=== PATIENT | female | born 1950 | race Caucasian/White ===

== ENCOUNTER 2016-09-22 01:25 | Inpatient (IN) | payer OTHER ==
[2016-09-22] MEDS ORDERED: SODIUM CHLORIDE 1,000 ML IV STA (02:20)
[2016-09-22] MEDS ORDERED: ONDANSETRON 4 MG/2 ML VIAL IVPB ONE (02:20)
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
[2016-09-22] MEDS ORDERED: MEPERIDINE HCL CARPU-JECT 100 MG/1 ML DISP.SYRIN IVPUSH ONE ×2 (02:21→04:26)
[2016-09-22] MEDS ORDERED: MEPERIDINE HCL CARPU-JECT 50 MG/1 ML DISP.SYRIN ONE ×4 (02:38→15:30)
[2016-09-22] MEDS ORDERED: ONDANSETRON 4 MG/2 ML VIAL ONE ×4 (02:39→15:31)
[2016-09-22 02:50] LABS: BASOPHIL 0.6 % (0-2.0); EOSINOPHIL 1.1 % (0-4.5); MCH 29.7 pg (25.7-33.7); MCHC 32.2 g/dl (32.0-36.0); MEAN CELL VOLUME 92.4 fl (80-96); MEAN PLT VOLUME 7.1 fl (7.5-11.1); NEUTROPHILS 89.8 % (42.8-82.8); PLATELET COUNT 279 K/MM3 (134-434); RDW 13.4 % (11.6-15.6); WHITE BLOOD COUNT 16.5 K/mm3 (4.0-10.0)
[2016-09-22 03:26] LABS: ALBUMIN 3.8 g/dl (3.4-5.0); ALK PHOS 146 U/L (45-117); ANION GAP 11 (8-16); BILIRUBIN,TOTAL 0.3 mg/dL (0.2-1.0); CALCIUM 8.7 mg/dL (8.5-10.1); CO2 24 mmol/L (21-32); CREATININE 0.7 mg/dL (0.55-1.02); GLUCOSE,RANDOM 130 mg/dL (74-106); SGOT/AST 15 U/L (15-37); SGPT/ALT 28 U/L (12-78); TOT PROT 7.9 g/dl (6.4-8.2)
[2016-09-22] MEDS ORDERED: LEVOFLOXACIN 500 MG IVPB 100 ML IVPB ONE ×3 (03:30→06:23)
[2016-09-22] MEDS ORDERED: METRONIDAZOLE 500 MG PREMIXED 100 ML IVPB ONE ×3 (03:30→10:02)
[2016-09-22] MEDS ORDERED: ONDANSETRON 4 MG/2 ML VIAL IVPUSH STA (04:41)
[2016-09-22] MEDS ORDERED: MEPERIDINE HCL 50 MG TABLET PO PRN (06:22)
[2016-09-22] MEDS ORDERED: BACLOFEN 10 MG TABLET (FP) PO PRN (06:22)
[2016-09-22] MEDS: DEXTROSE 5%-0.45% SALINE 1,000 ML IV SCH (06:31)
[2016-09-22] MEDS ORDERED: LEVOFLOXACIN 500 MG IVPB 100 ML IVPB SCH (06:36)
[2016-09-22] MEDS: ONDANSETRON 4 MG/2 ML VIAL IVPB PRN ×2 (08:15→15:36)
[2016-09-22] MEDS ORDERED: ACETAMINOPHEN 325 MG TABLET (FP) PO PRN (08:29)
[2016-09-22] MEDS ORDERED: ACETAMINOPHEN 325 MG TABLET (FP) ONE (08:59)
[2016-09-22] MEDS ORDERED: ACETAMINOPHEN 1000 MG/100 ML VIAL (NON FORMULARY) IVPB PRN (09:29)
[2016-09-22] MEDS: MEPERIDINE HCL CARPU-JECT 50 MG/1 ML DISP.SYRIN IVPB PRN ×2 (10:06→15:36)
[2016-09-22] MEDS: METRONIDAZOLE 500 MG PREMIXED 100 ML IVPB SCH ×2 (10:08→19:05)
[2016-09-22] MEDS: ASPIRIN COATED 81 MG TABLET.EC PO SCH (10:08)
[2016-09-22] MEDS ORDERED: ACETAMINOPHEN INJECTION 100 ML IVPB ONE (10:26)
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
[2016-09-22] MEDS ORDERED: diazePAM 5 MG TABLET PO PRN (10:53)
[2016-09-22 16:01] VITALS: BMI 26.2
[2016-09-22] MEDS ORDERED: INFLUENZA VACCINE 45 MCG/0.5 ML (MDV 16-17) IM ONE (16:01)
--- NOTE | 2016-09-22 16:36 | EKG ---
Test Reason : Blood Pressure : / mmHG Vent. Rate : 116 BPM Atrial Rate : 116 BPM P-R Int : 152 ms QRS Dur : 090 ms QT Int : 332 ms P-R-T Axes : 046 029 061 degrees QTc Int : 461 ms SINUS TACHYCARDIA BIATRIAL ENLARGEMENT ABNORMAL ECG WHEN COMPARED WITH ECG OF 14-APR-2016 00:35, NO SIGNIFICANT CHANGE WAS FOUND Confirmed by LEROY BOBBY MD ([id number]) on 09/22/2016 4:35:29 PM Referred By: Confirmed By:LEROY BOBBY MD
[2016-09-22] MEDS: MEPERIDINE HCL CARPU-JECT 25 MG/1 ML DISP.SYRIN IVPUSH PRN (20:17)
[2016-09-22] MEDS ORDERED: diazePAM 5 MG TABLET PO SCH (22:00)
[2016-09-22 22:12] LABS: URINE APPEARANCE CLEAR; URINE BILIRUBIN NEGATIVE (NEGATIVE); URINE BLOOD NEGATIVE (NEGATIVE); URINE COLOR LTYELLOW; URINE GLUCOSE (UA) NEGATIVE (NEGATIVE); URINE KETONE NEGATIVE (NEGATIVE); URINE NITRITE NEGATIVE (NEGATIVE); URINE PROTEIN NEGATIVE (NEGATIVE); URINE UROBILINOGEN NEGATIVE E.U./dl (0.2-1.0)
[2016-09-22 22:14] LABS: URINE LEUK ESTERASE 2+ (NEGATIVE)
[2016-09-22 22:25] LABS: URINE MUCUS RARE; URINE RBC 4 /hpf (0-3); URINE WBC 53 /hpf (3-5)
[2016-09-23] MEDS: MEPERIDINE HCL CARPU-JECT 25 MG/1 ML DISP.SYRIN IVPUSH PRN ×5 (00:35→22:24)
[2016-09-23] MEDS: METRONIDAZOLE 500 MG PREMIXED 100 ML IVPB SCH (02:00)
[2016-09-23] MEDS: DEXTROSE 5%-0.45% SALINE 1,000 ML IV SCH (06:52)
[2016-09-23] MEDS: ONDANSETRON 4 MG/2 ML VIAL IVPB PRN (07:18)
[2016-09-23 07:43] LABS: BASOPHIL 0.3 % (0-2.0); EOSINOPHIL 0.3 % (0-4.5); MCH 31.6 pg (25.7-33.7); MEAN PLT VOLUME 6.9 fl (7.5-11.1); NEUTROPHILS 70.8 % (42.8-82.8); PLATELET COUNT 217 K/MM3 (134-434); RDW 13.1 % (11.6-15.6); WHITE BLOOD COUNT 6.7 K/mm3 (4.0-10.0)
[2016-09-23 08:28] LABS: ALBUMIN 3.1 g/dl (3.4-5.0); ANION GAP 8 (8-16); CALCIUM 8.3 mg/dL (8.5-10.1); CO2 27 mmol/L (21-32); CREATININE 0.7 mg/dL (0.55-1.02); GLUCOSE,RANDOM 124 mg/dL (74-106); SGOT/AST 13 U/L (15-37)
[2016-09-23 08:31] LABS: ALK PHOS 103 U/L (45-117); BILIRUBIN,TOTAL 0.4 mg/dL (0.2-1.0); SGPT/ALT 20 U/L (12-78); TOT PROT 6.2 g/dl (6.4-8.2)
--- NOTE | 2016-09-23 09:00 | PN ---
Progress Note (short form) - Note Progress Note: NO vomiting since yesterday but still nauseated no fever CBC, BMP 09/23/16 06:00 09/23/16 06:00 Vital Signs Period Temp Pulse Resp BP Sys/Ariza Pulse Ox Last 24 Hr 98.1 F-99.9 F 95-112 18-20 114-138/56-71 93-96 S1S2 RRR Lungs cta Abd distended, +BS no edema CT abd unremarkable IMP ?INfectious gastritis no sign of colitis, enteritis on CT advance diet as tolerated dc abx monitor Problem List - Problems (1) Abdominal pain Code(s): R10.9 - UNSPECIFIED ABDOMINAL PAIN Qualifiers: Abdominal location: generalized Qualified Code(s): R10.84 - Generalized abdominal pain (2) Back pain, chronic Code(s): M54.9 - DORSALGIA, UNSPECIFIED G89.29 - OTHER CHRONIC PAIN Qualifiers: Back pain location: low back pain (3) Hyperlipemia Code(s): E78.5 - HYPERLIPIDEMIA, UNSPECIFIED Qualifiers: Hyperlipidemia type: unspecified Qualified Code(s): E78.5 - Hyperlipidemia, unspecified
[2016-09-23] MEDS: ENOXAPARIN NA (PORCINE) 30 MG/0.3 ML DISP.SYRIN SQ SCH (09:47)
[2016-09-23] MEDS ORDERED: MEPERIDINE HCL CARPU-JECT 50 MG/1 ML DISP.SYRIN ONE ×2 (11:24→17:24)
[2016-09-23] MEDS ORDERED: PT OWN MED DRAWER 7, Y5N ONE (17:23)
[2016-09-23] MEDS: DEXTROSE 5%-NORMAL SALINE 1,000 ML IV SCH (18:38)
[2016-09-23] MEDS: METOCLOPRAMIDE HCL INJECTION 10 MG/2 ML VIAL IVPB SCH (18:40)
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
[2016-09-23] MEDS: ONDANSETRON 4 MG/2 ML VIAL IVPB SCH ×2 (20:02→22:25)
[2016-09-24] MEDS: METOCLOPRAMIDE HCL INJECTION 10 MG/2 ML VIAL IVPB SCH ×3 (01:16→18:15)
[2016-09-24] MEDS: ONDANSETRON 4 MG/2 ML VIAL IVPB SCH ×2 (02:35→07:22)
[2016-09-24] MEDS: MEPERIDINE HCL CARPU-JECT 25 MG/1 ML DISP.SYRIN IVPUSH PRN ×5 (03:29→20:58)
[2016-09-24] MEDS ORDERED: ONDANSETRON 4 MG/2 ML VIAL IVPB PRN (06:00)
[2016-09-24 09:28] LABS: BASOPHIL 0.3 % (0-2.0); EOSINOPHIL 1.2 % (0-4.5); MCH 31.8 pg (25.7-33.7); MCHC 33.9 g/dl (32.0-36.0); MEAN CELL VOLUME 93.8 fl (80-96); MEAN PLT VOLUME 6.9 fl (7.5-11.1); NEUTROPHILS 66.6 % (42.8-82.8); PLATELET COUNT 216 K/MM3 (134-434); RDW 13.3 % (11.6-15.6); WHITE BLOOD COUNT 6.8 K/mm3 (4.0-10.0)
[2016-09-24 09:59] LABS: ALBUMIN 3.1 g/dl (3.4-5.0); ALK PHOS 102 U/L (45-117); ANION GAP 9 (8-16); BILIRUBIN,TOTAL 0.2 mg/dL (0.2-1.0); CALCIUM 7.9 mg/dL (8.5-10.1); CO2 28 mmol/L (21-32); CREATININE 0.6 mg/dL (0.55-1.02); GLUCOSE,RANDOM 115 mg/dL (74-106); SGOT/AST 16 U/L (15-37); SGPT/ALT 21 U/L (12-78); TOT PROT 6.1 g/dl (6.4-8.2)
[2016-09-24] MEDS: ASPIRIN COATED 81 MG TABLET.EC PO SCH (11:46)
[2016-09-24] MEDS: ENOXAPARIN NA (PORCINE) 30 MG/0.3 ML DISP.SYRIN SQ SCH (11:46)
[2016-09-24] MEDS ORDERED: LOPERAMIDE HCL 2 MG CAPSULE PO ONE (12:14)
--- NOTE | 2016-09-24 12:20 | PN ---
GI Progress Note Subjective: diarrhea less, no nausea ,no vomiting - Objective Vital Signs: Vital Signs Temperature 98.8 F 09/24/16 06:00 Pulse Rate 83 09/24/16 06:00 Respiratory Rate 20 09/24/16 06:00 Blood Pressure 141/75 09/24/16 06:00 O2 Sat by Pulse Oximetry (%) 92 L 09/23/16 21:00 Constitutional: Well Nourished Eyes: Yes: Conjunctiva Clear HENT: Yes: Atraumatic Neck: Yes: Supple Cardiovascular: Yes: Regular Rate and Rhythm Respiratory: Yes: CTA Bilaterally ...Palpate: Yes: Soft. No: Firm/Rigid, Guarding, Hepatomegaly, Mass, Pulsatile Mass, Splenomegaly, Tenderness Labs: CBC, BMP 09/24/16 07:00 09/24/16 07:00 Problem List - Problems (1) Infectious diarrhea Assessment/Plan: r> continue antibiotics for 5 days advance diet Code(s): A09 - INFECTIOUS GASTROENTERITIS AND COLITIS, UNSPECIFIED
[2016-09-24] MEDS: LEVOFLOXACIN 500 MG IVPB 100 ML IVPB SCH (14:16)
[2016-09-24] MEDS ORDERED: POTASSIUM CHLORIDE TABS 20 MEQ TABLET.ER (FP) PO ONE (16:00)
[2016-09-24] MEDS: DEXTROSE 5%-NORMAL SALINE 1,000 ML IV SCH (18:15)
--- NOTE | 2016-09-24 18:16 | PN ---
Progress Note (short form) - Note Progress Note: able to eat today no abd pain still have nausea seen by gi CBC, BMP 09/24/16 07:00 09/24/16 07:00 Vital Signs Period Temp Pulse Resp BP Sys/Ariza Pulse Ox Last 24 Hr 98.0 F-98.9 F 76-88 14-20 117-141/71-76 92-94 S1S2 RRR Lungs cta Abd distended, +BS no edema CT abd unremarkable IMP ?INfectious gastritis no sign of colitis, enteritis on CT advance diet as tolerated dc abx monitor
[2016-09-25] MEDS: MEPERIDINE HCL CARPU-JECT 25 MG/1 ML DISP.SYRIN IVPUSH PRN ×2 (01:00→04:54)
[2016-09-25] MEDS: METOCLOPRAMIDE HCL INJECTION 10 MG/2 ML VIAL IVPB SCH ×3 (02:21→17:31)
[2016-09-25] MEDS: MEPERIDINE HCL CARPU-JECT 50 MG/1 ML DISP.SYRIN IVPB PRN ×4 (09:54→22:14)
[2016-09-25] MEDS: ENOXAPARIN NA (PORCINE) 30 MG/0.3 ML DISP.SYRIN SQ SCH (09:56)
[2016-09-25] MEDS: LEVOFLOXACIN 500 MG IVPB 100 ML IVPB SCH (11:37)
[2016-09-25] MEDS: DEXTROSE 5%-NORMAL SALINE 1,000 ML IV SCH ×2 (13:16→18:44)
[2016-09-25] MEDS: METRONIDAZOLE 500 MG PREMIXED 100 ML IVPB SCH ×2 (17:16→19:11)
[2016-09-25] MEDS: SIMETHICONE 80 MG TAB.CHEW (FP) PO SCH ×2 (17:32→22:13)
--- NOTE | 2016-09-25 21:21 | PN ---
Progress Note (short form) - Note Progress Note: able to eat today no abd pain still have nausea seen by gi CBC, BMP 09/24/16 07:00 09/24/16 07:00 Vital Signs Period Temp Pulse Resp BP Sys/Ariza Pulse Ox Last 24 Hr 98.1 F-98.6 F 77-80 18-20 117-162/50-75 93-94 S1S2 RRR Lungs cta Abd distended, +BS no edema CT abd unremarkable IMP ?INfectious gastritis no sign of colitis, enteritis on CT advance diet as toleratedrenew pain meds
[2016-09-25] MEDS ORDERED: diazePAM 5 MG TABLET PO PRN (21:55)
[2016-09-26] MEDS: METRONIDAZOLE 500 MG PREMIXED 100 ML IVPB SCH ×3 (01:43→18:37)
[2016-09-26] MEDS: METOCLOPRAMIDE HCL INJECTION 10 MG/2 ML VIAL IVPB SCH (01:43)
[2016-09-26] MEDS: MEPERIDINE HCL CARPU-JECT 50 MG/1 ML DISP.SYRIN IVPB PRN ×5 (01:45→20:59)
--- NOTE | 2016-09-26 08:47 | PN ---
Progress Note (short form) - Note Progress Note: Vital Signs Period Temp Pulse Resp BP Sys/Ariza Pulse Ox Last 24 Hr 98.1 F-98.8 F 77-80 20-20 126-162/68-75 94-96 S1S2 RRR Lungs cta Abd distended, +BS, mild epigastric tenderness, loose watery BMs C.diff negative no edema CT abd unremarkable IMP ?Infectious gastritis no sign of colitis, enteritis on CT advance diet as tolerated stop fluids add PPI Problem List - Problems (1) Abdominal pain Code(s): R10.9 - UNSPECIFIED ABDOMINAL PAIN Qualifiers: Abdominal location: generalized Qualified Code(s): R10.84 - Generalized abdominal pain (2) Back pain, chronic Code(s): M54.9 - DORSALGIA, UNSPECIFIED G89.29 - OTHER CHRONIC PAIN Qualifiers: Back pain location: low back pain (3) Hyperlipemia Code(s): E78.5 - HYPERLIPIDEMIA, UNSPECIFIED Qualifiers: Hyperlipidemia type: unspecified Qualified Code(s): E78.5 - Hyperlipidemia, unspecified
[2016-09-26] MEDS: ASPIRIN COATED 81 MG TABLET.EC PO SCH (10:50)
[2016-09-26] MEDS: ENOXAPARIN NA (PORCINE) 30 MG/0.3 ML DISP.SYRIN SQ SCH (10:50)
[2016-09-26] MEDS: PANTOPRAZOLE 40 MG TABLET (FP) PO SCH (10:52)
[2016-09-26] MEDS: LEVOFLOXACIN 500 MG IVPB 100 ML IVPB SCH (12:56)
--- NOTE | 2016-09-26 18:16 | PN ---
GI Progress Note Subjective: diarrhea resolved, still with epigastric pain - Objective Vital Signs: Vital Signs Temperature 97.9 F 09/26/16 14:06 Pulse Rate 79 09/26/16 14:06 Respiratory Rate 18 09/26/16 14:06 Blood Pressure 133/83 09/26/16 14:06 O2 Sat by Pulse Oximetry (%) 96 09/25/16 22:00 Constitutional: Well Nourished Eyes: Yes: Conjunctiva Clear HENT: Yes: Atraumatic Neck: Yes: Supple Cardiovascular: Yes: Regular Rate and Rhythm Respiratory: Yes: CTA Bilaterally ...Palpate: Yes: Soft, Tenderness (--luq tenderness). No: Firm/Rigid, Guarding , Splenomegaly Labs: CBC, BMP 09/24/16 07:00 09/24/16 07:00 Problem List - Problems (1) Infectious diarrhea Assessment/Plan: continue Levaquin and Flagyl Code(s): A09 - INFECTIOUS GASTROENTERITIS AND COLITIS, UNSPECIFIED (2) Dyspepsia Assessment/Plan: could not tolerate simethicone R> Code(s): R10.13 - EPIGASTRIC PAIN
[2016-09-27] MEDS: MEPERIDINE HCL CARPU-JECT 50 MG/1 ML DISP.SYRIN IVPB PRN ×2 (01:49→05:39)
[2016-09-27] MEDS: METRONIDAZOLE 500 MG PREMIXED 100 ML IVPB SCH ×2 (02:19→09:31)
[2016-09-27] MEDS: METOCLOPRAMIDE HCL 10 MG TABLET (FP) PO SCH ×2 (06:00→10:48)
[2016-09-27 06:59] VITALS: BP 121/63; PULSE 72
--- NOTE | 2016-09-27 08:45 | DS ---
Physical Examination Vital Signs: Vital Signs Temperature 98.0 F 09/27/16 06:57 Pulse Rate 72 09/27/16 06:57 Respiratory Rate 18 09/27/16 06:57 Blood Pressure 121/63 09/27/16 06:57 O2 Sat by Pulse Oximetry (%) 95 09/26/16 21:00 Findings/Remarks: eating ok Constitutional: Yes: No Distress Eyes: Yes: Conjunctiva Clear Respiratory: Yes: CTA Bilaterally Gastrointestinal: Yes: Normal Bowel Sounds, Soft, Abdomen, Obese Labs: CBC, BMP 09/24/16 07:00 09/24/16 07:00 Discharge Summary Reason For Visit: ABDOMINAL PAIN Current Active Problems Abdominal pain (Acute) Dyspepsia (Acute) Infectious diarrhea (Acute) Hospital Course: Admitted for abd.pain, nausea, fever and leukocytosis. Blood, burke cultures and abd CT were negative. Improved with iv fluids, iv abx. Currently tolerating regular diet, medically stable to mo home with outpt f/up. Condition: Fair - Instructions Diet, Activity, Other Instructions: Low fiber, bland diet for next week. F/up dr. Warren in office. Referrals: Alvarez Warren MD [Primary Care Provider] - Disposition: HOME - Home Medications Comprehensive Discharge Medication List: Ambulatory Orders Aspirin [Ecotrin] 81 mg PO Q2D 08/06/15 Baclofen 10 mg PO DAILY PRN 08/06/15 Diazepam [Valium -] 10 mg PO HS 08/06/15 Meperidine HCl [Demerol -] 100 mg PO QID 05/22/16 Levofloxacin [Levaquin -] 500 mg PO DAILY #2 tablet 09/27/16 Metronidazole [Flagyl -] 500 mg PO TID #8 tablet 09/27/16 Ondansetron HCl [Zofran] 4 mg PO TID PRN #15 tablet 09/27/16 Pantoprazole Sodium [Protonix -] 40 mg PO DAILY 30 Days 09/27/16
[2016-09-27] MEDS: PANTOPRAZOLE 40 MG TABLET (FP) PO SCH (09:31)
[2016-09-27] MEDS: LEVOFLOXACIN 500 MG IVPB 100 ML IVPB SCH (09:31)
[2016-09-27] MEDS: ENOXAPARIN NA (PORCINE) 30 MG/0.3 ML DISP.SYRIN SQ SCH (09:31)
[2016-09-27] MEDS ORDERED: MEPERIDINE HCL 50 MG TABLET PO ONE (11:00)
[2016-09-27 11:35] VITALS: TEMP 8
== END 2016-09-27 11:51 | disposition home or self-care (01) | DRG 392 ==
LOC: JER 01:25 → JERBED 05:21 → J5S 17:30
PROVIDERS: ADMIT Internal Medicine; ATTEND Internal Medicine
DX: A09 Infectious gastroenteritis and colitis, unspecified (principal); I69.354 Hemiplegia and hemiparesis following cerebral infarction affecting left non-dominant side; R10.13 Epigastric pain; D72.829 Elevated white blood cell count, unspecified; E78.5 Hyperlipidemia, unspecified; M54.9 Dorsalgia, unspecified; G89.29 Other chronic pain
CPT/HCPCS: 36415; 71010-TC; 74020-TC; 74177-TC; 80053; 81003; 81015; 82272; 83690; 85025; 87040; 87045; 87046; 87205; 87324; 87449; 93005; 93010; 99283-25; G0008; Q2037

== ENCOUNTER 2016-12-21 20:52 | Emergency (ER) | payer OTHER ==
[2016-12-21 21:15] VITALS: BP 148/75; PULSE 128; TEMP 98; BMI 26.0
[2016-12-21] MEDS ORDERED: MEPERIDINE HCL CARPU-JECT 50 MG/1 ML DISP.SYRIN IVPUSH ONE (21:48)
[2016-12-21] MEDS ORDERED: METOCLOPRAMIDE HCL INJECTION 10 MG/2 ML VIAL IVPB ONE (21:48)
[2016-12-21] MEDS ORDERED: SODIUM CHLORIDE 500 ML IV STA (21:48)
--- NOTE | 2016-12-21 22:24 | PDOC ---
*Physical Exam - Vital Signs Last Vital Signs Temp Pulse Resp BP Pulse Ox 98.0 F 128 H 20 148/75 96 12/21/16 21:10 12/21/16 21:10 12/21/16 21:10 12/21/16 21:10 12/21/16 21:10 ED Treatment Course - LABORATORY CBC & Chemistry Diagram: 12/21/16 22:30 12/21/16 22:30 Medical Decision Making - Medical Decision Making 12/21/16 22:24 Pt seen by the Advanced Practice Provider under my direct supervision Ancillary studies reviewed I agree with plan as outlined by the Advanced Practice Provider ALONZO Whalen *DC/Admit/Observation/Transfer Diagnosis at time of Disposition: Opioid dependence, Nausea & vomiting - Discharge Dispostion Disposition: HOME Condition at time of disposition: Improved - Prescriptions Prescriptions: Ondansetron [Zofran Odt -] 4 mg SL Q6H PRN #20 od.tablet PRN Reason: Nausea - Referrals Referrals: Alvarez Coronel MD [Primary Care Provider] - - Patient Instructions Additional Instructions: FOLLOW UP WITH DR. CORONEL THIS WEEK FOR FURTHER EVALUATION. CALL TO SCHEDULE APPOINTMENT. MOTRIN OR TYLENOL FOR PAIN NEEDED. ZOFRAN FOR NAUSEA. Print Language: AUSTRIAN
[2016-12-21] MEDS ORDERED: MEPERIDINE HCL CARPU-JECT 50 MG/1 ML DISP.SYRIN ONE (22:37)
[2016-12-21] MEDS ORDERED: METOCLOPRAMIDE HCL INJECTION 10 MG/2 ML VIAL ONE (22:37)
[2016-12-21 22:49] LABS: EOSINOPHIL 1.9 % (0-4.5); MCH 30.9 pg (25.7-33.7); MEAN PLT VOLUME 7.4 fl (7.5-11.1); NEUTROPHILS 62.1 % (42.8-82.8); PLATELET COUNT 296 K/MM3 (134-434); RDW 13.1 % (11.6-15.6); WHITE BLOOD COUNT 13.3 K/mm3 (4.0-10.0)
[2016-12-21 23:28] LABS: ALBUMIN 3.4 g/dl (3.4-5.0); AMYLASE 53 U/L (25-115); ANION GAP 11 (8-16); BILIRUBIN,TOTAL 0.1 mg/dL (0.2-1.0); CALCIUM 8.4 mg/dL (8.5-10.1); CO2 27 mmol/L (21-32); CREATININE 0.8 mg/dL (0.55-1.02); GLUCOSE,RANDOM 124 mg/dL (74-106); SGPT/ALT 26 U/L (12-78); TOT PROT 7.2 g/dl (6.4-8.2)
[2016-12-21 23:31] LABS: ALK PHOS 139 U/L (45-117); TROPONIN I < 0.02 ng/ml (0.00-0.05)
[2016-12-21 23:32] LABS: SGOT/AST 16 U/L (15-37)
[2016-12-22 00:24] LABS: URINE APPEARANCE CLEAR; URINE BILIRUBIN NEGATIVE (NEGATIVE); URINE BLOOD NEGATIVE (NEGATIVE); URINE COLOR LTYELLOW; URINE GLUCOSE (UA) NEGATIVE (NEGATIVE); URINE KETONE NEGATIVE (NEGATIVE); URINE NITRITE NEGATIVE (NEGATIVE); URINE PROTEIN NEGATIVE (NEGATIVE); URINE UROBILINOGEN NEGATIVE E.U./dl (0.2-1.0)
[2016-12-22 00:25] LABS: URINE LEUK ESTERASE TRACE (NEGATIVE)
[2016-12-22] MEDS ORDERED: MEPERIDINE HCL CARPU-JECT 100 MG/1 ML DISP.SYRIN SQ ONE (00:28)
[2016-12-22 00:40] LABS: URINE BACTERIA RARE /hpf (NONE SEEN); URINE MUCUS RARE; URINE RBC 1 /hpf (0-3); URINE WBC 15 /hpf (3-5)
[2016-12-22] MEDS ORDERED: MEPERIDINE HCL CARPU-JECT 50 MG/1 ML DISP.SYRIN ONE (00:46)
--- NOTE | 2016-12-22 02:24 | PDOC ---
History of Present Illness - General Chief Complaint: Nausea/Vomiting Stated Complaint: Nausea/Vomiting Time Seen by Provider: 12/21/16 21:30 History Source: Patient Exam Limitations: No Limitations - History of Present Illness Travel History: No Initial Comments: 12/22/16 02:19 66yo Female patient w/ PmHx: multiple abd sx, renal colic, HLD, Abd hernia presents to ED c/o nausea & vomiting beginning Monday night. Patient now reports pain to Left flank pain radiating to lower abdomen. She reports last meal 11am. Denies any other complaints at this time. Timing/Duration: reports: getting worse, changing over time Quality: reports: moderate Abdominal Pain Onset Location: reports: flank (Left) Pain Radiation: reports: groin Activities at Onset: reports: none Aggravating Factors: improves with: None Alleviating Factors: improves with: None Past History - Travel Traveled outside of the country in the last 30 days: No Close contact w/someone who was outside of country & ill: No - Past Medical History Allergies/Adverse Reactions: Allergies Allergy/AdvReac Type Severity Reaction Status Date / Time hydromorphone HCl AdvReac Severe Low Blood Verified 12/21/16 21:10 [From Dilaudid] Pressure NSAIDS (Non-Steroidal AdvReac Intermediate Verified 12/21/16 21:10 Anti-Inflamma acetaminophen [From Percocet] AdvReac Mild Vomiting Verified 12/21/16 21:10 codeine [Codeine] AdvReac Mild Vomiting Verified 12/21/16 21:10 hydrocodone bitartrate AdvReac Mild Low Blood Verified 12/21/16 21:10 [From Vicodin] Pressure morphine AdvReac Mild Low Blood Verified 12/21/16 21:10 Pressure oxycodone [Oxycodone] AdvReac Mild Vomiting Verified 12/21/16 21:10 oxycodone HCl [From Percocet] AdvReac Mild Vomiting Verified 12/21/16 21:10 Home Medications: Ambulatory Orders Aspirin [Ecotrin] 81 mg PO Q2D 08/06/15 Baclofen 10 mg PO DAILY PRN 08/06/15 Diazepam [Valium -] 10 mg PO HS 08/06/15 Meperidine HCl [Demerol -] 100 mg PO QID 05/22/16 Levofloxacin [Levaquin -] 500 mg PO DAILY #2 tablet 09/27/16 Metronidazole [Flagyl -] 500 mg PO TID #8 tablet 09/27/16 Ondansetron HCl [Zofran] 4 mg PO TID PRN #15 tablet 09/27/16 Pantoprazole Sodium [Protonix -] 40 mg PO DAILY 30 Days 09/27/16 Ondansetron [Zofran Odt -] 4 mg SL Q6H PRN #20 od.tablet 12/22/16 Anemia: No Asthma: No Cancer: No Cardiac Disorders: No CVA: Yes (2) COPD: No CHF: No DVT: No Dementia: No Diabetes: No Dialysis: No GI Disorders: Yes (UMBILICAL HERNIA; 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) Disorders: No HTN: No Hypercholesterolemia: Yes HIV: No Kidney Stones: Yes (04/12/16) Liver Disease: No Psychiatric Problems: No Suicide Attempt (Hx): No Seizures: No - Surgical History Abdominal Surgery: Yes (6 HERNIA REPAIRS/HEMICOLECTOMY) GI Surgery: Yes (reconstruction of colon) Neurologic Surgery: Yes (laminectomy, spinal fusion, RECONSTRUCTION) Orthopedic Surgery: Yes - Immunization History Immunization Up to Date: Yes - Psycho/Social/Smoking Cessation Hx Anxiety: No Suicidal Ideation: No Smoking Status: Yes Smoking History: Former smoker Have you smoked in the past 12 months: No Number of Cigarettes Smoked Daily: 0 If you are a former smoker, when did you quit?: 25 YEARS AGO Information on smoking cessation initiated: No Hx Alcohol Use: No Drug/Substance Use Hx: No Substance Use Type: None Hx Substance Use Treatment: No Abd/GI Specific PMHX - Complaint Specific PMHX Diverticulitis: No Gall Bladder Disease: No GERD: No Hepatitis: No Irritable Bowel Synd (IBS): No Pancreatitis: No GI Ulcer Disease: No Review of Systems - Review of Systems Able to Perform ROS?: Yes Is the patient limited Stateless proficient: No Constitutional: No: Chills, Fever, Malaise, Weakness Respiratory: No: Cough, Shortness of Breath, Stridor, Wheezing, Productive cough Cardiac (ROS): No: Chest Pain, Lightheadedness, Palpitations, Syncope, Chest Tightness ABD/GI: Yes: Nausea, Vomiting, Other (Lower abd pain). No: Constipated, Diarrhea : Yes: Flank Pain (Left). No: Burning, Dysuria, Discharge Musculoskeletal: Yes: Back Pain All Other Systems: Reviewed and Negative *Physical Exam - Vital Signs Last Vital Signs Temp Pulse Resp BP Pulse Ox 98.0 F 128 H 20 148/75 96 12/21/16 21:10 12/21/16 21:10 12/21/16 21:10 12/21/16 21:10 12/21/16 21:10 - Physical Exam General Appearance: Yes: Nourished, Appropriately Dressed, Apparent Distress, Moderate Distress. No: Mild Distress, Severe Distress HEENT: positive: EOMI, IRMA, Normal ENT Inspection, Normal Voice, Symmetrical, TMs Normal, Pharynx Normal. negative: Pharyngeal Erythema, Tonsillar Exudate, Tonsillar Erythema, TM Bulging, TM Dull, TM Erythema Neck: positive: Trachea midline, Supple. negative: Stridor, Lymphadenopathy (R) , Lymphadenopathy (L) Respiratory/Chest: positive: Lungs Clear, Normal Breath Sounds. negative: Respiratory Distress, Accessory Muscle Use, Labored Respiration, Rapid RR, Rhonchi, Stridor, Wheezing Cardiovascular: positive: Regular Rhythm, Regular Rate. negative: Edema, JVD, Murmur Gastrointestinal/Abdominal: positive: Normal Bowel Sounds, Tender, Soft, Tenderness (Lower abd to LLQ). negative: Distended, Guarding, Rebound Musculoskeletal: positive: Normal Inspection, CVA Tenderness (Left), CVA Tenderness (L). 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 intact, Fully Oriented, Alert, Normal Mood/ Affect, Normal Response, Motor Strength 5/5 ED Treatment Course - LABORATORY CBC & Chemistry Diagram: 12/21/16 22:30 12/21/16 22:30 - ADDITIONAL ORDERS Additional order review: Laboratory Results 12/21/16 12/21/16 22:40 22:30 Sodium 141 Potassium 3.9 Chloride 103 Carbon Dioxide 27 Anion Gap 11 BUN 14 D Creatinine 0.8 D Creat Clearance w eGFR > 60 Random Glucose 124 H Calcium 8.4 L Total Bilirubin 0.1 L D AST 16 ALT 26 D Alkaline Phosphatase 139 H D Creatine Kinase 69 Troponin I < 0.02 Total Protein 7.2 Albumin 3.4 Total Amylase 53 D Lipase 91 Urine Color Ltyellow Urine Appearance Clear Urine pH 5.0 Ur Specific Marshall 1.027 Urine Protein Negative Urine Glucose (UA) Negative Urine Ketones Negative Urine Blood Negative Urine Nitrite Negative Urine Bilirubin Negative Urine Urobilinogen Negative Ur Leukocyte Esterase Trace H D Urine RBC 1 Urine WBC 15 Ur Epithelial Cells Rare Urine Bacteria Rare Urine Mucus Rare 12/21/16 22:30 RBC 4.23 MCV 91.0 MCHC 34.0 RDW 13.1 MPV 7.4 L Neutrophils % 62.1 Lymphocytes % 29.8 D Monocytes % 5.2 Eosinophils % 1.9 Basophils % 1.0 D - Medications Given in the ED: ED Medications Discontinued Medications Generic Name Dose Route Start Last Admin Trade Name Freq PRN Reason Stop Dose Admin Sodium Chloride 500 mls @ 500 mls/hr 12/21/16 21:48 12/21/16 22:45 Normal Saline - IV 12/21/16 22:47 500 mls/hr ASDIR STA Administration Meperidine HCl 50 mg 12/21/16 21:48 12/21/16 22:30 Demerol Injection - IVPUSH 12/21/16 21:49 50 mg ONCE ONE Administration Meperidine HCl 100 mg 12/22/16 00:28 12/22/16 00:45 Demerol Injection - SQ 12/22/16 00:29 100 mg ONCE ONE Administration Metoclopramide HCl 10 mg 12/21/16 21:48 12/21/16 22:30 Reglan Injection - IVPB 12/21/16 21:49 10 mg ONCE ONE Administration *DC/Admit/Observation/Transfer Diagnosis at time of Disposition: Opioid dependence Qualifiers: Substance use status: uncomplicated Qualified Code(s): F11.20 - Opioid dependence, uncomplicated Nausea and vomiting Qualifiers: Vomiting type: unspecified Vomiting Intractability: non-intractable Qualified Code(s): R11.2 - Nausea with vomiting, unspecified - Discharge Dispostion Disposition: HOME Condition at time of disposition: Improved Admit: No - Prescriptions Prescriptions: Ondansetron [Zofran Odt -] 4 mg SL Q6H PRN #20 od.tablet PRN Reason: Nausea - Patient Instructions Additional Instructions: FOLLOW UP WITH DR. CORONEL THIS WEEK FOR FURTHER EVALUATION. CALL TO SCHEDULE APPOINTMENT. MOTRIN OR TYLENOL FOR PAIN NEEDED. ZOFRAN FOR NAUSEA. Print Language: TURKISH
== END 2016-12-22 03:20 | disposition home or self-care (01) ==
LOC: JER 20:52
PROC: 3E033NZ Introduction of Analgesics, Hypnotics, Sedatives into Peripheral Vein, Percutaneous Approach (ICD-10-PCS; principal; 2016-12-21)
PROC: 3E023NZ Introduction of Analgesics, Hypnotics, Sedatives into Muscle, Percutaneous Approach (ICD-10-PCS; 2016-12-21)
PROC: 3E033GC Introduction of Other Therapeutic Substance into Peripheral Vein, Percutaneous Approach (ICD-10-PCS; 2016-12-21)
PROC: 3E0337Z Introduction of Electrolytic and Water Balance Substance into Peripheral Vein, Percutaneous Approach (ICD-10-PCS; 2016-12-21)
DX: F11.20 Opioid dependence, uncomplicated (principal); R11.2 Nausea with vomiting, unspecified; E78.5 Hyperlipidemia, unspecified; Z87.891 Personal history of nicotine dependence; Z86.73 Personal history of transient ischemic attack (TIA), and cerebral infarction without residual deficits; Z98.890 Other specified postprocedural states
CPT/HCPCS: 36415; 74176; 80053; 81003; 81015; 82150; 82550; 83690; 84484; 85025; 87086; 99281-25

== ENCOUNTER 2017-02-22 18:22 | Emergency (ER) | payer OTHER ==
[2017-02-22 18:26] VITALS: BMI 26.3
[2017-02-22] MEDS ORDERED: ONDANSETRON 4 MG/2 ML VIAL IVPUSH STA (19:40)
[2017-02-22] MEDS ORDERED: SODIUM CHLORIDE 1,000 ML IV STA (19:40)
[2017-02-22] MEDS ORDERED: LEVOFLOXACIN 500 MG IVPB 100 ML IVPB ONE ×2 (19:41→19:56)
[2017-02-22] MEDS ORDERED: METRONIDAZOLE 500 MG PREMIXED 100 ML IVPB ONE ×2 (19:41→19:56)
[2017-02-22] MEDS ORDERED: MEPERIDINE HCL CARPU-JECT 75 MG/1 ML DISP.SYRIN IVPUSH ONE ×2 (19:41→21:58)
--- NOTE | 2017-02-22 19:42 | PDOC ---
History of Present Illness <Marika Cruz - Last Filed: 02/23/17 01:23> - General History Source: Patient Exam Limitations: No Limitations - History of Present Illness Initial Comments: 02/22/17 19:42 67-year-old female, presents with abdominal pain associated with N/V since Monday. patient states she has history diverticulitis and kidney stones. Patient state to able to eat since Monday. Patient states she has the chills. Complains of diarrhea as well. Patient denies any sick Or recent travel. Pain is crampy in nature 10 out of 10. patient denies FUD. <Tim Ponce - Last Filed: 02/23/17 01:29> - General Chief Complaint: Nausea/Vomiting Stated Complaint: NAUSEA/VOMITING Time Seen by Provider: 02/22/17 19:34 Past History <Marika Cruz - Last Filed: 02/23/17 01:23> - Past Medical History Anemia: No Asthma: No Cancer: No Cardiac Disorders: No CVA: Yes (2) COPD: No CHF: No DVT: No Dementia: No Diabetes: No Dialysis: No GI Disorders: Yes (UMBILICAL HERNIA; 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) Disorders: No HTN: No Hypercholesterolemia: Yes HIV: No Kidney Stones: Yes (04/12/16) Liver Disease: No Psychiatric Problems: No Suicide Attempt (Hx): No Seizures: No - Surgical History Abdominal Surgery: Yes (6 HERNIA REPAIRS/HEMICOLECTOMY) GI Surgery: Yes (reconstruction of colon) Neurologic Surgery: Yes (laminectomy, spinal fusion, RECONSTRUCTION) Orthopedic Surgery: Yes - Immunization History Immunization Up to Date: Yes - Psycho/Social/Smoking Cessation Hx Anxiety: No Suicidal Ideation: No Smoking Status: Yes Smoking History: Never smoked Have you smoked in the past 12 months: No Number of Cigarettes Smoked Daily: 0 If you are a former smoker, when did you quit?: 25 YEARS AGO Hx Alcohol Use: No Drug/Substance Use Hx: No Substance Use Type: None Hx Substance Use Treatment: No <Tim Ponce - Last Filed: 02/23/17 01:29> - Past Medical History Allergies/Adverse Reactions: Allergies Allergy/AdvReac Type Severity Reaction Status Date / Time hydromorphone HCl AdvReac Severe Low Blood Verified 02/22/17 18:26 [From Dilaudid] Pressure NSAIDS (Non-Steroidal AdvReac Intermediate Verified 02/22/17 18:26 Anti-Inflamma codeine [Codeine] AdvReac Mild Vomiting Verified 02/22/17 18:26 hydrocodone bitartrate AdvReac Mild Low Blood Verified 02/22/17 18:26 [From Vicodin] Pressure morphine AdvReac Mild Low Blood Verified 02/22/17 18:26 Pressure oxycodone [Oxycodone] AdvReac Mild Vomiting Verified 02/22/17 18:26 oxycodone HCl [From Percocet] AdvReac Mild Vomiting Verified 02/22/17 18:26 Home Medications: Ambulatory Orders Aspirin [Ecotrin] 81 mg PO ASDIR 08/06/15 Baclofen 10 mg PO DAILY PRN 08/06/15 Diazepam [Valium -] 10 mg PO HS 08/06/15 Meperidine HCl [Demerol -] 100 mg PO QID 05/22/16 Pantoprazole Sodium [Protonix -] 40 mg PO DAILY 30 Days 09/27/16 Ondansetron [Zofran *Odt*] 4 mg SL TID #30 od.tablet 02/23/17 Review of Systems - Review of Systems Constitutional: Yes: Symptoms Reported, See HPI, Chills, Loss of Appetite, Malaise. No: Fever, Night Sweats, Weight Stable, Unintentional Wgt. Loss, Other HEENTM: Yes: Symptoms Reported, See HPI. No: Eye Pain, Blurred Vision, Tearing , Recent change in vision, Cataracts, Ear Pain, Ocular Prothesis, Ear Discharge , Nose Pain, Nose Congestion, Nose Bleeding, Hearing Loss Respiratory: Yes: Symptoms reported, See HPI. No: Cough, Orthopnea, Shortness of Breath, SOB with Exertion, Productive cough Cardiac (ROS): Yes: Symptoms Reported, See HPI. No: Chest Pain, Edema, Irregular Heart Rate, Lightheadedness, Palpitations, Other ABD/GI: Yes: Symptoms Reported, See HPI, Diarrhea, Nausea, Vomiting, Indigestion , Abdominal cramping. No: Abdominal Distended, Abd. Pain w/ defecation, Blood Streaked Bowels : Yes: Symptoms Reported, See HPI. No: Burning, Dysuria, Discharge, Frequency , Flank Pain, Hematuria, Urgency, Testicular Pain Musculoskeletal: Yes: Symptoms Reported, See HPI. No: Back Pain, Gout, Joint Pain, Joint Swelling, Muscle Pain, Neck Pain Integumentary: Yes: Symptoms Reported, See HPI. No: Bruising, Change in Color, Erythema, Flushing, Lesions, Lumps Neurological: Yes: Symptoms reported, See HPI. No: Headache, Numbness, Paresthesia, Pre-Existing Deficit, Seizure, Tingling, Tremors, Weakness Psychiatric: No: Anxiety, Depression, Frequent Crying, Stressors, Sleep Pattern Change, Other Endocrine: Yes: Symptoms Reported, See HPI. No: Excessive Sweating, Flushing, Intolerance to Cold, Intolerance to Heat, Increased Hunger Hematologic/Lymphatic: Yes: Symptoms Reported, See HPI. No: Anemia, Blood Clots , Easy Bleeding, Easy Bruising, Lymph Node Abnormalities <Tim Ponce - Last Filed: 02/23/17 01:29> *Physical Exam - Vital Signs Last Vital Signs Temp Pulse Resp BP Pulse Ox 98.3 F 95 H 17 132/78 98 02/22/17 23:44 02/22/17 23:44 02/22/17 23:44 02/22/17 23:44 02/22/17 23:44 <Marika Cruz - Last Filed: 02/23/17 01:23> - Vital Signs Last Vital Signs Temp Pulse Resp BP Pulse Ox 99.0 F 107 H 20 156/91 97 02/22/17 18:22 02/22/17 18:22 02/22/17 18:22 02/22/17 18:22 02/22/17 18:22 - Physical Exam Comments: 02/22/17 19:49 *Physical Exam General Appearance: Yes: Appropriately Dressed. moderate distress No: Intoxicated HEENT: positive: EOMI, IRMA, Normal ENT Inspection, Normal Voice, TMs Normal, Pharynx Normal. negative: Pale Conjunctivae, Photophobia, Scleral Icterus (R), Scleral Icterus (L) Neck: positive: Trachea midline, Normal Thyroid, Supple. negative: Tender, Rigid, Carotid bruit, Stridor, Lymphadenopathy (R), Lymphadenopathy (L), Thyromegaly Respiratory/Chest: positive: Lungs Clear, Normal Breath Sounds. negative: Chest Tender, Respiratory Distress, Accessory Muscle Use, Labored Respiration, RES, Crackles, Rales, Rhonchi, Stridor, Wheezing, Dullness Cardiovascular: positive: Regular Rhythm, Regular Rate, S1, S2. negative: Edema , JVD, Murmur, Bradycardia, Tachycardia Vascular Pulses: Dorsalis-Pedis (R): 2+, Doralis-Pedis (L): 2+ Gastrointestinal/Abdominal: positive: Normal Bowel Sounds, distended, mild diffuse tenderness, Soft. negative: Organomegaly, Pulsatile Mass, Increased Bowel Sounds, Decreased BS, Distended, Guarding, Rebound, Hernia, Hepatomegaly, Spleenomegaly Lymphatic: negative: Adenopathy, Tenderness Musculoskeletal: positive: Normal Inspection. negative: CVA Tenderness, Decreased Range of Motion Extremity: positive: Normal Capillary Refill, Normal Inspection, Normal Range of Motion, Pelvis Stable. negative: Tender, Pedal Edema, Swelling, Erythema Integumentary: positive: Normal Color, Dry, Warm. 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 negative: EOM Palsy, Facial Droop, Sensory Deficit <Tim Ponce - Last Filed: 02/23/17 01:29> ED Treatment Course - LABORATORY CBC & Chemistry Diagram: 02/22/17 20:05 02/22/17 20:05 - ADDITIONAL ORDERS Additional order review: Laboratory Results 02/22/17 02/22/17 02/22/17 22:55 20:05 20:05 INR 0.98 Sodium 141 Potassium 4.3 Chloride 102 Carbon Dioxide 28 Anion Gap 11 BUN 11 D Creatinine 0.8 Creat Clearance w eGFR > 60 Random Glucose 105 Calcium 9.1 Magnesium 2.2 Total Bilirubin 0.3 D AST 17 ALT 25 Alkaline Phosphatase 160 H Total Protein 7.7 Albumin 3.9 Total Amylase 52 Lipase 68 L Urine Color Ltyellow Urine Appearance Clear Urine pH 6.0 Urine Protein Negative Urine Glucose (UA) Negative Urine Ketones Negative Urine Blood 1+ H Urine Nitrite Negative Urine Bilirubin Negative Urine Urobilinogen Negative Ur Leukocyte Esterase Negative Urine RBC 1 Urine WBC <1 Ur Epithelial Cells Rare Urine Mucus Rare 02/22/17 20:05 RBC 4.53 MCV 91.6 MCHC 32.5 RDW 12.7 MPV 7.5 Neutrophils % 78.3 D Lymphocytes % 14.8 D Monocytes % 4.7 Eosinophils % 1.4 Basophils % 0.8 - RADIOLOGY Radiograph Interpretation: 02/23/17 01:24 EXAM: CT abdomen and pelvis with oral contrast 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 Small nonobstructing stone in the lower pole of the right kidney. The unenhanced upper abdominal visceral organs are otherwise grossly normal There is no bowel distention. A normal appendix is visualized There have been prior resections of the left colon. No significant diverticulosis or evidence of acute diverticulitis There is mesh along the anterior abdominal wall both supraumbilical and infraumbilical compatible with prior hernia repairs. A portion of small bowel projects into a small umbilical hernia without evidence of obstruction There is no free air or free fluid The patient is status post posterior fusion of L2-L5 with bilateral fixation rods and pedicle screws, L4 laminectomy and discectomy is at L3/L4 and L4/L5 with disc implants and bone grafts - Medications Given in the ED: ED Medications Discontinued Medications Generic Name Dose Route Start Last Admin Trade Name Freq PRN Reason Stop Dose Admin Sodium Chloride 1,000 mls @ 1,000 mls/hr 02/22/17 19:40 02/22/17 20:19 Normal Saline - IV 02/22/17 20:39 1,000 mls/hr ASDIR STA Administration Metronidazole 100 mls @ 100 mls/hr 02/22/17 19:41 02/22/17 20:20 Flagyl 500mg Premixed Ivpb - IVPB 02/22/17 20:40 100 mls/hr ONCE ONE Administration Levofloxacin 100 mls @ 100 mls/hr 02/22/17 19:41 02/22/17 21:03 Levaquin 500 Mg Premixed Ivpb - IVPB 02/22/17 20:40 100 mls/hr ONCE ONE Administration Meperidine HCl 75 mg 02/22/17 19:41 02/22/17 20:20 Demerol Injection - IVPUSH 02/22/17 19:42 75 mg ONCE ONE Administration Meperidine HCl 75 mg 02/22/17 21:58 02/22/17 22:12 Demerol Injection - IVPUSH 02/22/17 21:59 75 mg ONCE ONE Administration Meperidine HCl 100 mg 02/23/17 00:47 02/23/17 00:56 Demerol Injection - IVPUSH 02/23/17 00:48 100 mg ONCE ONE Administration Ondansetron HCl 4 mg 02/22/17 19:40 02/22/17 20:19 Zofran Injection IVPUSH 02/22/17 19:41 4 mg ONCE STA Administration <Marika Cruz - Last Filed: 02/23/17 01:23> - LABORATORY CBC & Chemistry Diagram: 02/22/17 20:05 02/22/17 20:05 <Tim Ponce - Last Filed: 02/23/17 01:29> Medical Decision Making - Medical Decision Making 02/23/17 01:27 Dr. Ponce: The scribe's documentation has been prepared under my direction and personally reviewed by me in its entirery. I confirm that the note above accurately reflects all work, treatment, procedures, and medical decision making performed by me. Ct scan of abd/pelvis is negative for any pathology. Pt to be discharged. Pt to follow up with her pcp. Referred to GI. <Tim Ponce - Last Filed: 02/23/17 01:29> *DC/Admit/Observation/Transfer <Marika Cruz - Last Filed: 02/23/17 01:23> - Discharge Dispostion Admit: No <Tim Ponce - Last Filed: 02/23/17 01:29> Diagnosis at time of Disposition: Nausea & vomiting - Discharge Dispostion Disposition: HOME Condition at time of disposition: Stable - Referrals Referrals: Brennon Griffin MD [Staff Physician] - - Patient Instructions Printed Discharge Instructions: DI for Nausea -- Adult, DI for Vomiting -- Adult
[2017-02-22] MEDS ORDERED: ONDANSETRON 4 MG/2 ML VIAL ONE (19:55)
[2017-02-22] MEDS ORDERED: MEPERIDINE HCL CARPU-JECT 50 MG/1 ML DISP.SYRIN ONE ×2 (20:15→22:08)
[2017-02-22 20:37] LABS: BASOPHIL 0.8 % (0-2.0); EOSINOPHIL 1.4 % (0-4.5); MCH 29.8 pg (25.7-33.7); MCHC 32.5 g/dl (32.0-36.0); MEAN CELL VOLUME 91.6 fl (80-96); MEAN PLT VOLUME 7.5 fl (7.5-11.1); NEUTROPHILS 78.3 % (42.8-82.8); PLATELET COUNT 294 K/MM3 (134-434); RDW 12.7 % (11.6-15.6); WHITE BLOOD COUNT 12.2 K/mm3 (4.0-10.0)
[2017-02-22 20:50] LABS: INR 0.98 (0.82-1.09); PROTHROMBIN TIME (PATIENT) 10.8 SEC (9.98-11.88)
[2017-02-22 21:00] LABS: ALBUMIN 3.9 g/dl (3.4-5.0); AMYLASE 52 U/L (25-115); ANION GAP 11 (8-16); BILIRUBIN,TOTAL 0.3 mg/dL (0.2-1.0); CALCIUM 9.1 mg/dL (8.5-10.1); CO2 28 mmol/L (21-32); CREATININE 0.8 mg/dL (0.55-1.02); GLUCOSE,RANDOM 105 mg/dL (74-106); MAGNESIUM 2.2 mg/dL (1.8-2.4); SGOT/AST 17 U/L (15-37); SGPT/ALT 25 U/L (12-78); TOT PROT 7.7 g/dl (6.4-8.2)
[2017-02-22 21:01] LABS: ALK PHOS 160 U/L (45-117)
[2017-02-22 23:01] LABS: URINE APPEARANCE CLEAR; URINE BILIRUBIN NEGATIVE (NEGATIVE); URINE COLOR LTYELLOW; URINE GLUCOSE (UA) NEGATIVE (NEGATIVE); URINE KETONE NEGATIVE (NEGATIVE); URINE LEUK ESTERASE NEGATIVE (NEGATIVE); URINE NITRITE NEGATIVE (NEGATIVE); URINE PROTEIN NEGATIVE (NEGATIVE); URINE UROBILINOGEN NEGATIVE E.U./dl (0.2-1.0)
[2017-02-22 23:14] LABS: URINE BLOOD 1+ (NEGATIVE)
[2017-02-22 23:40] LABS: URINE MUCUS RARE; URINE RBC 1 /hpf (0-3); URINE WBC <1 /hpf (3-5)
[2017-02-23] MEDS ORDERED: MEPERIDINE HCL CARPU-JECT 100 MG/1 ML DISP.SYRIN IVPUSH ONE (00:47)
[2017-02-23] MEDS ORDERED: MEPERIDINE HCL CARPU-JECT 50 MG/1 ML DISP.SYRIN ONE (00:51)
[2017-02-23 01:43] VITALS: BP 129/73; PULSE 89; TEMP 98.1
== END 2017-02-23 01:44 | disposition home or self-care (01) ==
LOC: JER 18:22
PROC: 3E033GC Introduction of Other Therapeutic Substance into Peripheral Vein, Percutaneous Approach (ICD-10-PCS; principal; 2017-02-22)
PROC: 3E03329 Introduction of Other Anti-infective into Peripheral Vein, Percutaneous Approach (ICD-10-PCS; 2017-02-22)
PROC: 3E033NZ Introduction of Analgesics, Hypnotics, Sedatives into Peripheral Vein, Percutaneous Approach (ICD-10-PCS; 2017-02-22)
PROC: 3E033GC Introduction of Other Therapeutic Substance into Peripheral Vein, Percutaneous Approach (ICD-10-PCS; 2017-02-22)
DX: R11.2 Nausea with vomiting, unspecified (principal); Z87.442 Personal history of urinary calculi; Z87.19 Personal history of other diseases of the digestive system
CPT/HCPCS: 36415; 74176-TC; 80053; 81003; 81015; 82150; 83690; 83735; 85025; 85610; 87040; 87086; 99283-25; Q9967

== ENCOUNTER 2017-03-21 22:35 | Emergency (ER) | payer OTHER ==
[2017-03-21 22:43] VITALS: BP 160/91; PULSE 88; TEMP 98.5; BMI 26.2
[2017-03-22] MEDS ORDERED: diazePAM CARPU-JECT 10 MG/2 ML DISP.SYRIN IM ONE (01:25)
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
[2017-03-22] MEDS ORDERED: diazePAM CARPU-JECT 10 MG/2 ML DISP.SYRIN ONE (02:06)
[2017-03-22] MEDS ORDERED: MEPERIDINE HCL CARPU-JECT 75 MG/1 ML DISP.SYRIN IM ONE (03:47)
[2017-03-22] MEDS ORDERED: MEPERIDINE HCL CARPU-JECT 50 MG/1 ML DISP.SYRIN ONE (03:54)
== END 2017-03-22 05:23 | disposition home or self-care (01) ==
LOC: JER 22:35
PROC: 3E023NZ Introduction of Analgesics, Hypnotics, Sedatives into Muscle, Percutaneous Approach (ICD-10-PCS; principal; 2017-03-21)
PROC: 3E023NZ Introduction of Analgesics, Hypnotics, Sedatives into Muscle, Percutaneous Approach (ICD-10-PCS; 2017-03-21)
PROC: 3E023GC Introduction of Other Therapeutic Substance into Muscle, Percutaneous Approach (ICD-10-PCS; 2017-03-21)
DX: M62.830 Muscle spasm of back (principal); E78.00 Pure hypercholesterolemia, unspecified; Z87.442 Personal history of urinary calculi; Z86.73 Personal history of transient ischemic attack (TIA), and cerebral infarction without residual deficits
CPT/HCPCS: 72131-TC; 96372; 99281-25

== ENCOUNTER 2017-06-09 13:18 | Emergency (ER) | payer OTHER ==
[2017-06-09 13:45] VITALS: BMI 28.3
--- NOTE | 2017-06-09 16:07 | PDOC ---
History of Present Illness - General History Source: Patient Exam Limitations: No Limitations - History of Present Illness Initial Comments: 06/09/17 16:45 The patient is a 67 year old female, with significant past medical history of chronic back pain, multiple back surgeries, CVA, who presents to the emergency room complaining of 3 days of left lower back pain that radiates to the left leg. She explains that she slid off of her bed 3 times and hit her back on metal sheet roller operator handles under her bed. She notes that her left leg feels numb. She reports that this pain is different than her chronic back pain because it is 10/ 10, sharp, and her leg has never been numb before. She is usually able to manage the pain with the medications from her pain management doctor, Dr. Abraham. She also believes that the screws in her left lower back from previous surgeries are too long and crooked. Denies fever, chills, nausea, vomiting. Denies neck pain. Denies abdominal pain. Allergies: codeine, oxycodone, oxycodone HCl, morphine, hydrocodone bitartrate, NSAIDS, hydromorphone HCl PCP: Dr. Warren Pain Management: Dr. Kandice Abraham <Paula Dorsey - Last Filed: 06/09/17 16:45> <Lance Medina - Last Filed: 06/09/17 20:18> <Maribel Beltran - Last Filed: 06/10/17 17:43> - General Chief Complaint: Back Pain Stated Complaint: PAIN, ACUTE Time Seen by Provider: 06/09/17 15:31 Past History <Paula Dorsey - Last Filed: 06/09/17 16:45> <Lance Medina - Last Filed: 06/09/17 20:18> - Past Medical History Anemia: No Asthma: No Cancer: No Cardiac Disorders: No CVA: Yes (2) COPD: No CHF: No DVT: No Dementia: No Diabetes: No Dialysis: No GI Disorders: Yes (UMBILICAL HERNIA; 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) Disorders: No HTN: No Hypercholesterolemia: Yes Kidney Stones: Yes (04/12/16) Liver Disease: No Psychiatric Problems: No Seizures: No - Surgical History Abdominal Surgery: Yes (6 HERNIA REPAIRS/HEMICOLECTOMY) GI Surgery: Yes (reconstruction of colon) Neurologic Surgery: Yes (laminectomy, spinal fusion, RECONSTRUCTION) Orthopedic Surgery: Yes - Immunization History Immunization Up to Date: Yes - Suicide/Smoking/Psychosocial Hx Smoking Status: Yes Smoking History: Never smoked Have you smoked in the past 12 months: No Number of Cigarettes Smoked Daily: 0 If you are a former smoker, when did you quit?: 25 YEARS AGO Information on smoking cessation initiated: No Hx Alcohol Use: No Drug/Substance Use Hx: No Substance Use Type: None Hx Substance Use Treatment: No <Maribel Beltran - Last Filed: 06/10/17 17:43> - Past Medical History Allergies/Adverse Reactions: Allergies Allergy/AdvReac Type Severity Reaction Status Date / Time hydromorphone HCl AdvReac Severe Low Blood Verified 06/09/17 13:45 [From Dilaudid] Pressure NSAIDS (Non-Steroidal AdvReac Intermediate Verified 06/09/17 13:45 Anti-Inflamma codeine [Codeine] AdvReac Mild Vomiting Verified 06/09/17 13:45 hydrocodone bitartrate AdvReac Mild Low Blood Verified 06/09/17 13:45 [From Vicodin] Pressure morphine AdvReac Mild Low Blood Verified 06/09/17 13:45 Pressure oxycodone [Oxycodone] AdvReac Mild Vomiting Verified 06/09/17 13:45 oxycodone HCl [From Percocet] AdvReac Mild Vomiting Verified 06/09/17 13:45 Home Medications: Ambulatory Orders Aspirin [Ecotrin] 81 mg PO ASDIR 08/06/15 Baclofen 10 mg PO DAILY PRN 08/06/15 Diazepam [Valium -] 10 mg PO HS 08/06/15 Meperidine HCl [Demerol -] 100 mg PO QID 05/22/16 Pantoprazole Sodium [Protonix -] 40 mg PO DAILY 30 Days 09/27/16 Ondansetron [Zofran *Odt*] 4 mg SL TID #30 od.tablet 02/23/17 Review of Systems - Review of Systems Able to Perform ROS?: Yes Comments:: 06/09/17 16:45 GENERAL/CONSTITUTIONAL: No fever or chills. No weakness. HEAD, EYES, EARS, NOSE AND THROAT: No change in vision. No ear pain or discharge. No sore throat. GASTROINTESTINAL: No nausea, vomiting, diarrhea or constipation. GENITOURINARY: No dysuria, frequency, or change in urination. CARDIOVASCULAR: No chest pain or shortness of breath. RESPIRATORY: No cough, wheezing, or hemoptysis. MUSCULOSKELETAL: + Left sided lower back pain that radiates to the left leg. + left leg numbness SKIN: No rash NEUROLOGIC: No headache, vertigo, loss of consciousness, or change in strength/ sensation. ENDOCRINE: No increased thirst. No abnormal weight change. HEMATOLOGIC/LYMPHATIC: No anemia, easy bleeding, or history of blood clots. ALLERGIC/IMMUNOLOGIC: No hives or skin allergy. <Paula Dorsey - Last Filed: 06/09/17 16:45> *Physical Exam - Vital Signs Last Vital Signs Temp Pulse Resp BP Pulse Ox 99 F 89 18 166/98 97 06/09/17 13:43 06/09/17 13:43 06/09/17 13:43 06/09/17 13:43 06/09/17 13:43 - Physical Exam Comments: 06/09/17 16:47 GENERAL: Awake, alert, and fully oriented, in no acute distress appears uncom HEAD: No signs of trauma EYES: PERRLA, EOMI, sclera anicteric, conjunctiva clear ENT: Auricles normal inspection, hearing grossly normal, nares patent, oropharynx clear without exudates. Moist mucosa NECK: Normal ROM, supple, no lymphadenopathy, JVD, or masses LUNGS: Breath sounds equal, clear to auscultation bilaterally. No wheezes, and no crackles HEART: Regular rate and rhythm, normal S1 and S2, no murmurs, rubs or gallops ABDOMEN: Soft, nontender, normoactive bowel sounds. No guarding, no rebound. No masses SPINE: Midline tend diffusely across the lumbar spine. Soft tissue tenderness to the left piriformis. EXTREMITIES: Normal range of motion, no edema. No clubbing or cyanosis. No cords, erythema, or tenderness NEUROLOGICAL: Cranial nerves II through XII grossly intact. Normal speech, normal gait SKIN: Warm, Dry, normal turgor, no rashes or lesions noted. <Paula Dorsey - Last Filed: 06/09/17 16:45> - Vital Signs Last Vital Signs Temp Pulse Resp BP Pulse Ox 98.2 F 88 20 148/85 98 06/09/17 18:39 06/09/17 18:39 06/09/17 18:39 06/09/17 18:39 06/09/17 18:39 <Lance Medina - Last Filed: 06/09/17 20:18> - Vital Signs Last Vital Signs Temp Pulse Resp BP Pulse Ox 99 F 89 18 166/98 97 06/09/17 13:43 06/09/17 13:43 06/09/17 13:43 06/09/17 13:43 06/09/17 13:43 <Maribel Beltran - Last Filed: 06/10/17 17:43> ED Treatment Course - Medications Given in the ED: ED Medications Discontinued Medications Generic Name Dose Route Start Last Admin Trade Name Freq PRN Reason Stop Dose Admin Diazepam 10 mg 06/09/17 16:29 06/09/17 16:35 Valium Injection - IM 06/09/17 16:30 10 mg ONCE ONE Administration Meperidine HCl 75 mg 06/09/17 16:28 06/09/17 16:35 Demerol Injection - IM 06/09/17 16:29 75 mg ONCE ONE Administration <Paula Dorsey - Last Filed: 06/09/17 16:45> - Medications Given in the ED: ED Medications Discontinued Medications Generic Name Dose Route Start Last Admin Trade Name Freq PRN Reason Stop Dose Admin Dexamethasone Sodium Phosphate 10 mg 06/09/17 18:29 06/09/17 18:31 Decadron Injection - IM 06/09/17 18:30 10 mg ONCE ONE Administration Diazepam 10 mg 06/09/17 16:29 06/09/17 16:35 Valium Injection - IM 06/09/17 16:30 10 mg ONCE ONE Administration Meperidine HCl 75 mg 06/09/17 16:28 06/09/17 16:35 Demerol Injection - IM 06/09/17 16:29 75 mg ONCE ONE Administration Meperidine HCl 50 mg 06/09/17 18:30 06/09/17 18:38 Demerol Injection - IM 06/09/17 18:31 50 mg ONCE ONE Administration <Lance Medina - Last Filed: 06/09/17 20:18> Medical Decision Making - Medical Decision Making 06/09/17 19:[address] Witt. She has received a second dose of demerol as well as a dose of steroids (the sciatica symptoms are new onset). Reassess, if improved , may f/u with her spinal surgeon. <Maribel Beltran - Last Filed: 06/10/17 17:43> *DC/Admit/Observation/Transfer - Attestations Scribe Attestion: 06/09/17 16:47 Documentation prepared by FELICIA Noel, acting as medical charge entry specialist for Maribel Beltran MD. <Paula Dorsey - Last Filed: 06/09/17 16:45> <Lance Medina - Last Filed: 06/09/17 20:18> <Maribel Beltran - Last Filed: 06/10/17 17:43> Diagnosis at time of Disposition: Back pain, chronic, Lumbar radicular syndrome - Discharge Dispostion Disposition: HOME Condition at time of disposition: Good - Referrals Referrals: Alvarez Warren MD [Primary Care Provider] - - Patient Instructions Printed Discharge Instructions: DI for Low Back Pain, DI for Sciatica, DI for Back Pain With Sciatica Additional Instructions: Niharika- Please follow up with your back surgeon and your pain managment physician. The Emergency Department Physicians are not supposed to treat chronic pain, only acute pain, any further pain relief must come from your physicians. Best- Dr. Tim Witt
[2017-06-09] MEDS ORDERED: MEPERIDINE HCL CARPU-JECT 75 MG/1 ML DISP.SYRIN IM ONE (16:28)
[2017-06-09] MEDS ORDERED: diazePAM CARPU-JECT 10 MG/2 ML DISP.SYRIN IM ONE (16:29)
[2017-06-09] MEDS ORDERED: MEPERIDINE HCL CARPU-JECT 50 MG/1 ML DISP.SYRIN ONE ×3 (16:46→20:53)
[2017-06-09] MEDS ORDERED: diazePAM 5 MG TABLET ONE (16:46)
[2017-06-09] MEDS ORDERED: DEXAMETHASONE SOD PHOSPHATE 10 MG/1 ML VIAL IM ONE (18:29)
[2017-06-09] MEDS ORDERED: MEPERIDINE HCL CARPU-JECT 50 MG/1 ML DISP.SYRIN IM ONE ×2 (18:30→20:45)
[2017-06-09] MEDS ORDERED: DEXAMETHASONE SOD PHOSPHATE 10 MG/1 ML VIAL ONE (18:31)
[2017-06-09 18:40] VITALS: BP 148/85; PULSE 88; TEMP 98.2
--- NOTE | 2017-06-09 20:03 | PDOC ---
*Physical Exam - Vital Signs Last Vital Signs Temp Pulse Resp BP Pulse Ox 98.2 F 88 20 148/85 98 06/09/17 18:39 06/09/17 18:39 06/09/17 18:39 06/09/17 18:39 06/09/17 18:39 <Andrea Witt - Last Filed: 06/09/17 20:56> - Vital Signs Last Vital Signs Temp Pulse Resp BP Pulse Ox 98.2 F 88 20 148/85 98 06/09/17 18:39 06/09/17 18:39 06/09/17 18:39 06/09/17 18:39 06/09/17 18:39 - Physical Exam Comments: 06/09/17 21:15 GENERAL: Awake, alert, and fully oriented. HEAD: No signs of trauma EYES: PERRLA, EOMI, sclera anicteric, conjunctiva clear ENT: Auricles normal inspection, hearing grossly normal, nares patent, oropharynx clear without exudates. Moist mucosa NECK: Normal ROM, supple, no lymphadenopathy, JVD, or masses LUNGS: Breath sounds equal, clear to auscultation bilaterally. No wheezes, and no crackles HEART: Regular rate and rhythm, normal S1 and S2, no murmurs, rubs or gallops BACK: +Diffuse midline tenderness across the lumbar spine. ABDOMEN: Soft, nontender, normoactive bowel sounds. No guarding, no rebound. No masses EXTREMITIES: Normal range of motion, no edema. No clubbing or cyanosis. No cords, erythema, or tenderness NEUROLOGICAL: Cranial nerves II through XII grossly intact. Normal speech, normal gait SKIN: Warm, Dry, normal turgor, no rashes or lesions noted. <Lance Medina - Last Filed: 06/09/17 21:16> ED Treatment Course - Medications Given in the ED: ED Medications Discontinued Medications Generic Name Dose Route Start Last Admin Trade Name Freq PRN Reason Stop Dose Admin Dexamethasone Sodium Phosphate 10 mg 06/09/17 18:29 06/09/17 18:31 Decadron Injection - IM 06/09/17 18:30 10 mg ONCE ONE Administration Diazepam 10 mg 06/09/17 16:29 06/09/17 16:35 Valium Injection - IM 06/09/17 16:30 10 mg ONCE ONE Administration Meperidine HCl 75 mg 06/09/17 16:28 06/09/17 16:35 Demerol Injection - IM 06/09/17 16:29 75 mg ONCE ONE Administration Meperidine HCl 50 mg 06/09/17 18:30 06/09/17 18:38 Demerol Injection - IM 06/09/17 18:31 50 mg ONCE ONE Administration <Andrea Witt - Last Filed: 06/09/17 20:56> - RADIOLOGY Radiograph Interpretation: 06/09/17 21:16 EXAM: CT lumbar spine without contrast IMAGES: [id number] DATE OF SERVICE: 2017-06-09 17:07:15 HISTORY: Low back pain COMPARISON: None. FINDINGS: 1. There is previous L3-L4 and L4-L5 discectomy, previous L3 and L4 laminectomy and posterior L2-L5 fusion with retained hardware. 2. There is no evidence of fracture or subluxation. 3. There is the appearance of lucency around portions of the most superior pedicle screws. This can be seen with hardware loosening. 3. Visualization of detail of the contents of the lumbar canal is significantly limited by artifact. 4. The paraspinous soft tissues are unremarkable. Comparison with previous imaging studies is recommended. If no prior studies are available for comparison, MRI may be helpful for further evaluation. This CT exam was performed using one or more of the following dose reduction techniques: Automated exposure control, Adjustment of the mA and/or kV according to patient size, Use of iterative reconstruction technique. THIS DOCUMENT HAS BEEN ELECTRONICALLY SIGNED Maribel Adkins MD - Medications Given in the ED: ED Medications Discontinued Medications Generic Name Dose Route Start Last Admin Trade Name Joey PRN Reason Stop Dose Admin Dexamethasone Sodium Phosphate 10 mg 06/09/17 18:29 06/09/17 18:31 Decadron Injection - IM 06/09/17 18:30 10 mg ONCE ONE Administration Diazepam 10 mg 06/09/17 16:29 06/09/17 16:35 Valium Injection - IM 06/09/17 16:30 10 mg ONCE ONE Administration Meperidine HCl 75 mg 06/09/17 16:28 06/09/17 16:35 Demerol Injection - IM 06/09/17 16:29 75 mg ONCE ONE Administration Meperidine HCl 50 mg 06/09/17 18:30 06/09/17 18:38 Demerol Injection - IM 06/09/17 18:31 50 mg ONCE ONE Administration <Lance Medina - Last Filed: 06/09/17 21:16> Medical Decision Making - Medical Decision Making 06/09/17 20:[address] report is appreciated, I spoke with her primary care doctor and he and I both feel she can be treated as an outpatient. After quite a bit of Demerol she still reports her pain to be a 7. Her CT does indicate that there may be one screw, the most superior that is possibly becoming loose. I shared the information with her. She will follow up with her physician in the city. <Andrea Witt - Last Filed: 06/09/17 20:56> - Medical Decision Making 06/09/17 19:[address] results for medical decision making. 06/09/17 20:10 Dr. Warren called for admission. Dr. Warren returned call at 20:13. <Lance Medina - Last Filed: 06/09/17 21:16> *DC/Admit/Observation/Transfer - Discharge Dispostion Admit: No - Attestations Physician Attestion: 06/09/17 20:03 I, Dr. Andrea Witt, attest that this document has been prepared under my direction and personally reviewed by me in its entirety. I further attest, that it accurately reflects all work, treatment, procedures and medical decision -making performed by me. <Andrea Witt - Last Filed: 06/09/17 20:56> - Attestations Scribe Attestion: 06/09/17 20:21 Documentation prepared by Lance Medina, acting as medical social consultant for Andrea Witt DO. <Lanec Medina - Last Filed: 06/09/17 21:16> Diagnosis at time of Disposition: Lumbar radicular syndrome Back pain, chronic Qualifiers: Back pain location: low back pain Back pain laterality: left Sciatica presence : with sciatica Sciatica laterality: sciatica of left side Qualified Code(s): M54.42 - Lumbago with sciatica, left side - Discharge Dispostion Disposition: HOME Condition at time of disposition: Good - Referrals Referrals: Alvarez Warren MD [Primary Care Provider] - - Patient Instructions Printed Discharge Instructions: DI for Low Back Pain, DI for Sciatica, DI for Back Pain With Sciatica Additional Instructions: Niharika- Please follow up with your back surgeon and your pain managment physician. The Emergency Department Physicians are not supposed to treat chronic pain, only acute pain, any further pain relief must come from your physicians. [place]- Dr. Tim Witt - Post Discharge Activity
== END 2017-06-09 21:43 | disposition home or self-care (01) ==
LOC: JER 13:18 → JERFT 13:18 → JER 21:43
PROC: 3E033GC Introduction of Other Therapeutic Substance into Peripheral Vein, Percutaneous Approach (ICD-10-PCS; principal; 2017-06-09)
PROC: 3E033NZ Introduction of Analgesics, Hypnotics, Sedatives into Peripheral Vein, Percutaneous Approach (ICD-10-PCS; 2017-06-09)
DX: M54.5 Low back pain (principal); G89.29 Other chronic pain; Z87.891 Personal history of nicotine dependence
CPT/HCPCS: 72131-TC; 96372; 99283-25

== ENCOUNTER 2017-06-18 20:06 | Emergency (ER) | payer OTHER ==
[2017-06-18 20:11] VITALS: BP 148/80; PULSE 99; TEMP 98.5; BMI 26.2
[2017-06-18] MEDS ORDERED: ACETAMINOPHEN 500 MG TABLET (FP) PO ONE (21:23)
[2017-06-18] MEDS ORDERED: ACETAMINOPHEN 500 MG TABLET (FP) ONE ×2 (21:24→21:25)
--- NOTE | 2017-06-18 21:29 | PDOC ---
History of Present Illness - General Chief Complaint: Injury Stated Complaint: INJURY Time Seen by Provider: 06/18/17 20:46 - History of Present Illness Initial Comments: 06/18/17 21:25 CHIEF COMPLAINT: HISTORY OF PRESENT ILLNESS: 67 yo F with hx of back pain presents to [facility] with knee and hip pain s/p fall. Patient states she was in kitchen when she slipped and fell and to avoid hitting her head she landed on her side onto her hip and knee. Patient states she has a pain management doctor "and can only take Demerol." Patient denies any LOC, nausea, vomiting, or current back pain. PAST MEDICAL HISTORY: Denies past medical history FAMILY HISTORY: Denies SOCIAL HISTORY: Denies tobacco, alcohol, illicit drug use. SURGICAL HISTORY: Denies ALLERGIES: dilaudid, nsaids, codeine, morphine, oxycodone REVIEW OF SYSTEMS General/Constitutional: Denies fever or chills. Denies weakness, weight change. HEENT: Denies change in vision. Denies ear pain or discharge. Denies sore throat. Cardiovascular: Denies chest pain or shortness of breath. Respiratory: Denies cough, wheezing, or hemoptysis. Gastrointestinal: Denies nausea, vomiting, diarrhea or constipation. Denies rectal bleeding. Genitourinary: Denies dysuria, frequency, or change in urination. Musculoskeletal: LEft hip and left knee pain. Skin and breasts: Denies rash or easy bruising. PHYSICAL EXAM General Appearance: Well-appearing, appropriately dressed. No apparent distress , no intoxication. HEENT: EOMI, PERRLA, normal ENT inspection, normal voice, TMs normal, pharynx normal. No conjunctival pallor. No photophobia, scleral icterus. Neck: Supple. Trachea midline. No tenderness, rigidity, carotid bruit, stridor , lymphadenopathy, or thyromegaly. Respiratory/Chest: Lungs CTAB. No shortness of breath, chest tenderness, respiratory distress, accessory muscle use. No crackles, rales, rhonchi, stridor , wheezing, dullness Cardiovascular: RRR. S1, S2. No JVD, murmur, bradycardia, tachycardia. Vascular Pulses: Dorsalis-Pedis (R): 2+, Dorsalis-Pedis (L): 2+ Gastrointestinal/Abdominal: Normal bowel sounds. Abdomen soft, non-distended. No tenderness or rebound tenderness. No organomegaly, pulsatile mass, guarding , hernia, hepatomegaly, splenomegaly. Lymphatic: No adenopathy, tenderness. Musculoskeletal/Extremities: Normal inspection. FROM of all extremities, normal capillary refill. Pelvis Stable. No CVA tenderness. No tenderness to extremities, pedal edema, swelling, erythema or deformity. Integumentary: Appropriate color, dry, warm. 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 Fully oriented, alert. Appropriate mood/affect. Motor strength 5/5. No appreciable EOM palsy, facial droop or sensory deficit. Past History - Past Medical History Allergies/Adverse Reactions: Allergies Allergy/AdvReac Type Severity Reaction Status Date / Time hydromorphone HCl AdvReac Severe Low Blood Verified 06/09/17 13:45 [From Dilaudid] Pressure NSAIDS (Non-Steroidal AdvReac Intermediate Verified 06/09/17 13:45 Anti-Inflamma codeine [Codeine] AdvReac Mild Vomiting Verified 06/09/17 13:45 hydrocodone bitartrate AdvReac Mild Low Blood Verified 06/09/17 13:45 [From Vicodin] Pressure morphine AdvReac Mild Low Blood Verified 06/09/17 13:45 Pressure oxycodone [Oxycodone] AdvReac Mild Vomiting Verified 06/09/17 13:45 oxycodone HCl [From Percocet] AdvReac Mild Vomiting Verified 06/09/17 13:45 Home Medications: Ambulatory Orders Aspirin [Ecotrin] 81 mg PO ASDIR 08/06/15 Baclofen 10 mg PO DAILY PRN 08/06/15 Diazepam [Valium -] 10 mg PO HS 08/06/15 Meperidine HCl [Demerol -] 100 mg PO QID 05/22/16 Anemia: No Asthma: No Cancer: No Cardiac Disorders: No CVA: Yes (2) COPD: No CHF: No DVT: No Dementia: No Diabetes: No Dialysis: No GI Disorders: Yes (UMBILICAL HERNIA; 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) Disorders: No HTN: No Hypercholesterolemia: Yes Kidney Stones: Yes (04/12/16) Liver Disease: No Psychiatric Problems: No Seizures: No - Surgical History Abdominal Surgery: Yes (6 HERNIA REPAIRS/HEMICOLECTOMY) GI Surgery: Yes (reconstruction of colon) Neurologic Surgery: Yes (laminectomy, spinal fusion, RECONSTRUCTION) Orthopedic Surgery: Yes - Immunization History Immunization Up to Date: Yes - Suicide/Smoking/Psychosocial Hx Smoking Status: Yes Smoking History: Never smoked Have you smoked in the past 12 months: No Number of Cigarettes Smoked Daily: 0 If you are a former smoker, when did you quit?: 25 years ago Information on smoking cessation initiated: No Hx Alcohol Use: No Drug/Substance Use Hx: No Substance Use Type: None Hx Substance Use Treatment: No Trauma Specific PMHX - Complaint Specific PMHX Arthritis: No Back Injury: Yes Hx Sacro Iliac Joint Dysfunction: No *Physical Exam - Vital Signs Last Vital Signs Temp Pulse Resp BP Pulse Ox 98.5 F 99 H 18 148/80 96 06/18/17 20:08 06/18/17 20:08 06/18/17 20:08 06/18/17 20:08 06/18/17 20:08 ED Treatment Course - RADIOLOGY Radiology Studies Ordered: Category Date Time Status HIP & PELVIS-LEFT [RAD] Stat Radiology 06/18/17 20:53 Taken KNEE 3 POS-LEFT [RAD] Stat Radiology 06/18/17 20:53 Taken Medical Decision Making - Medical Decision Making 06/18/17 21:28 67 yo F with hx of back pain presents to [facility] with knee and hip pain s/p fall. -Hip and knee x-ray Patient requesting Demerol. 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: Others' Prescriptions Patient Name: Analisa Garza Date: 1950 Address: [address] [place] [address] Sex: Female Rx Written Rx Dispensed Drug Quantity Days Supply Prescriber Name 06/08/2017 06/09/2017 diazepam 10 mg tablet 100 25 Tino Abraham MD 06/08/2017 06/09/2017 meperidine 100 mg tablet 140 24 Tino Abraham MD 05/23/2017 05/24/2017 demerol 50 mg/ml vial 60gm 30 Tino Abraham MD 05/08/2017 05/10/2017 diazepam 10 mg tablet 105 27 Tino Abraham MD 05/08/2017 05/10/2017 meperidine 100 mg tablet 140 24 Tino Abraham MD 04/25/2017 04/26/2017 demerol 50 mg/ml vial 60gm 30 Tino Abraham MD 03/28/2017 04/03/2017 diazepam 10 mg tablet 110 28 Tino Abraham MD 03/28/2017 04/03/2017 meperidine 100 mg tablet 140 24 Tino Abraham MD 03/28/2017 03/28/2017 demerol 100 mg/ml ampul 25gm 25 Tino Abraham MD 02/27/2017 03/08/2017 meperidine 100 mg tablet 140 24 Tino Abraham MD 02/27/2017 02/28/2017 diazepam 10 mg tablet 110 28 Tino Abraham MD 02/27/2017 02/28/2017 demerol 100 mg/ml ampul 25gm 25 Tino Abraham MD 01/31/2017 01/31/2017 diazepam 10 mg tablet 110 28 Tino Abraham MD 01/31/2017 01/31/2017 demerol 100 mg/ml ampul 25gm 25 Tino Abraham MD 01/31/2017 01/31/2017 meperidine 100 mg tablet 140 24 Tino Abraham MD 12/29/2016 12/31/2016 demerol 100 mg/ml ampul 25gm 25 Tino Abraham MD 12/29/2016 12/31/2016 diazepam 10 mg tablet 110 28 Tino Abraham MD Will not rx any narcotics given that patient just received 140 tabs of Demerol one week ago. -Tylenol po Patient refused Tylenol. Patient seen ambulating with normal gait after receiving x-ray. Will discharge to home. 06/18/17 21:29 *DC/Admit/Observation/Transfer Diagnosis at time of Disposition: Opioid dependence, Knee pain, left, Hip pain, left - Discharge Dispostion Disposition: HOME Condition at time of disposition: Stable Admit: No - Referrals Referrals: Alvarez Warren MD [Primary Care Provider] - - Patient Instructions Printed Discharge Instructions: DI for Knee Pain, DI for Contusion, Help for Hip Pain Additional Instructions: Please follow up with your pain management doctor for pain medication. If you develop any loss of sensation to your extremities, inability to walk, or any new or worsening symptoms, you may return to the ER. - Post Discharge Activity
== END 2017-06-18 22:35 | disposition home or self-care (01) ==
LOC: JERFT 20:06
DX: E78.00 Pure hypercholesterolemia, unspecified (principal); Z86.73 Personal history of transient ischemic attack (TIA), and cerebral infarction without residual deficits
CPT/HCPCS: 73523-TC; 73562-TC-LT; 99281-25

== ENCOUNTER 2017-09-20 19:31 | Emergency (ER) | payer OTHER ==
[2017-09-20 20:05] VITALS: BP 127/89; PULSE 93; TEMP 97.1; BMI 27.0
--- NOTE | 2017-09-20 20:05 | PDOC ---
Rapid Medical Evaluation Time Seen by Provider: 09/20/17 19:57 Medical Evaluation: Allergies Allergy/AdvReac Type Severity Reaction Status Date / Time hydromorphone HCl AdvReac Severe Low Blood Verified 06/09/17 13:45 [From Dilaudid] Pressure NSAIDS (Non-Steroidal AdvReac Intermediate Verified 06/09/17 13:45 Anti-Inflamma codeine [Codeine] AdvReac Mild Vomiting Verified 06/09/17 13:45 hydrocodone bitartrate AdvReac Mild Low Blood Verified 06/09/17 13:45 [From Vicodin] Pressure morphine AdvReac Mild Low Blood Verified 06/09/17 13:45 Pressure oxycodone [Oxycodone] AdvReac Mild Vomiting Verified 06/09/17 13:45 oxycodone HCl [From Percocet] AdvReac Mild Vomiting Verified 06/09/17 13:45 I have performed a brief in-person evaluation of this patient. The patient presents with a chief complaint of: back pain s/p slip and fall 2 days ago. No bowel or bladder incontinence. Some tingling down left leg. Pertinent physical exam findings: Pain reproduced with palpation of midline lower lumbar and sacral spine. Pain also reproduced with palpation of left lower lumbar paravertebral muscles. Motor and sensory intact in LEs. No saddle anesthesia. I have ordered the following: xray lumbar/sacral spine The patient will proceed to the ED for further evaluation.
--- NOTE | 2017-09-20 21:22 | PDOC ---
History of Present Illness - General Chief Complaint: Back Pain Stated Complaint: BACK PAIN Time Seen by Provider: 09/20/17 19:57 History Source: Patient Exam Limitations: No Limitations - History of Present Illness Initial Comments: 09/20/17 21:17 This is 66-year-old woman with multiple spinal surgeries who presents to emergency department with lower back pain status post slip and fall 2 days ago. Patient states she was cleaning out of vestibule and she slipped and fell backwards striking her lower back on the doorknob of the door behind her. She was able to walk immediately after the injury was having serious pain. Her pain has been unrelieved despite taking Demerol 3 times a day with Vistaril and Valium. She denies any nausea, vomiting, bowel and bladder incontinence, saddle anesthesia, loss of strength in her extremities. She does report having intermittent numbness to her toes which is relieved with range of motion exercises of her ankles. Past History - Past Medical History Allergies/Adverse Reactions: Allergies Allergy/AdvReac Type Severity Reaction Status Date / Time hydromorphone HCl AdvReac Severe Low Blood Verified 06/09/17 13:45 [From Dilaudid] Pressure NSAIDS (Non-Steroidal AdvReac Intermediate Verified 06/09/17 13:45 Anti-Inflamma codeine [Codeine] AdvReac Mild Vomiting Verified 06/09/17 13:45 hydrocodone bitartrate AdvReac Mild Low Blood Verified 06/09/17 13:45 [From Vicodin] Pressure morphine AdvReac Mild Low Blood Verified 06/09/17 13:45 Pressure oxycodone [Oxycodone] AdvReac Mild Vomiting Verified 06/09/17 13:45 oxycodone HCl [From Percocet] AdvReac Mild Vomiting Verified 06/09/17 13:45 Home Medications: Ambulatory Orders Aspirin [Ecotrin] 81 mg PO ASDIR 08/06/15 Baclofen 10 mg PO DAILY PRN 08/06/15 Diazepam [Valium -] 10 mg PO HS 08/06/15 Meperidine HCl [Demerol -] 100 mg PO QID 05/22/16 Anemia: No Asthma: No Cancer: No Cardiac Disorders: No CVA: Yes (2) COPD: No CHF: No DVT: No Dementia: No Diabetes: No Dialysis: No GI Disorders: Yes (UMBILICAL HERNIA; 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) Disorders: No HTN: No Hypercholesterolemia: Yes Kidney Stones: Yes (04/12/16) Liver Disease: No Psychiatric Problems: No Seizures: No - Surgical History Abdominal Surgery: Yes (6 HERNIA REPAIRS/HEMICOLECTOMY) GI Surgery: Yes (reconstruction of colon) Neurologic Surgery: Yes (laminectomy, spinal fusion, RECONSTRUCTION) Orthopedic Surgery: Yes - Immunization History Immunization Up to Date: Yes - Suicide/Smoking/Psychosocial Hx Smoking Status: Yes Smoking History: Never smoked Have you smoked in the past 12 months: No Number of Cigarettes Smoked Daily: 0 If you are a former smoker, when did you quit?: 25 years ago Information on smoking cessation initiated: No Hx Alcohol Use: No Drug/Substance Use Hx: No Substance Use Type: None Hx Substance Use Treatment: No Trauma Specific PMHX - Complaint Specific PMHX Arthritis: No Back Injury: Yes Hx Sacro Iliac Joint Dysfunction: No Review of Systems - Review of Systems Able to Perform ROS?: Yes Is the patient limited Upper Sorbian proficient: No Constitutional: No: Symptoms Reported HEENTM: No: Symptoms Reported Respiratory: No: Symptoms reported Cardiac (ROS): No: Symptoms Reported ABD/GI: No: Symptoms Reported : No: Symptoms Reported Musculoskeletal: Yes: See HPI Integumentary: No: Symptoms Reported Neurological: No: Symptoms reported Endocrine: No: Symptoms Reported Hematologic/Lymphatic: No: Symptoms Reported *Physical Exam - Vital Signs Last Vital Signs Temp Pulse Resp BP Pulse Ox 97.1 F L 93 H 20 127/89 96 09/20/17 20:02 09/20/17 20:02 09/20/17 20:02 09/20/17 20:02 09/20/17 20:02 - Physical Exam General Appearance: Yes: Appropriately Dressed. No: Apparent Distress HEENT: positive: Normal ENT Inspection Neck: positive: Trachea midline Respiratory/Chest: positive: Lungs Clear, Normal Breath Sounds. negative: Respiratory Distress Cardiovascular: positive: Regular Rhythm, Regular Rate Gastrointestinal/Abdominal: positive: Normal Bowel Sounds, Soft. negative: Tender Musculoskeletal: positive: Normal Inspection, Vertebral Tenderness (to L1-S2). 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 Patient states she was cleaning out of vestibule and she slipped and fell backwards striking her lower back on the doorknob of the door behind her. She was able to walk immediately after the injury was having serious pain. Her pain has been unrelieved despite taking Demerol 3 times a day with Vistaril and Valium. She denies any nausea, vomiting, bowel and bladder incontinence, saddle anesthesia, loss of strength in her extremities. She does report having intermittent numbness to her toes which is relieved with range of motion exercises of her ankles. Patient with bony spinous tenderness from L1 through the sacrum. No deformities are palpated. Patient is able to bear weight and is able to her with steady gait. Patient with full sensation to medial and lateral sides of lower extremities. Differential diagnosis includes muscle strain versus contusion versus fracture I will obtain radiographic studies of the lumbosacral spine. Patient with multiple medical ALLERGIES to pain relievers. I'll give the patient 5 mg of Valium by mouth and weight for radiographic studies to be read for reevaluation. Patient states her pain management doctors on vacation until September 30. 09/20/17 21:49 X-rays of the lumbosacral spine as read by Dr. Madsen: There is no radiographic evidence of acute fracture. A minimal to mild chronic T12 superior endplate compression fractures seen without bony retropulsion. This finding appears unchanged in comparison to a CT study of 06/09/2017. Status post multilevel posterior instrumented fusion as on the prior CT study. No obvious [place] fractures identified. Impression: No radiographic evidence of acute fracture as discussed above. Pain management discussed with patient who is refusing diet this time. I offered to prescribe her boxes for the patient who refused. She is requesting IV Demerol to help control her pain at this time. I explained to her that I will not give IV Demerol in the emergency department for pain management. She is to follow-up with her auto painter helper to have better control of her chronic pain. *DC/Admit/Observation/Transfer Diagnosis at time of Disposition: Musculoskeletal back pain - Discharge Dispostion Disposition: HOME Condition at time of disposition: Stable Admit: No - Referrals Referrals: Tucker Garcia MD [Primary Care Provider] - - Patient Instructions Additional Instructions: Continue to take your previously prescribed Demerol at home. Apply ice packs for 20 minutes at a time then remove for a minimum of 20 minutes before reapplying. As there was no fracture noted on x-rays, your acute pain should resolve within the next few days. Make an appointment with your primary doctor or auto painter helper for continued treatment of the ongoing pain. Return to emergency department for numbness or tingling to genitals or rectum, numbness or tingling to feet, nability to walk or any other concerns. Thank you very much for choosing us to provide your emergent healthcare needs. - Post Discharge Activity
[2017-09-20] MEDS ORDERED: diazePAM 5 MG TABLET PO ONE (21:23)
[2017-09-20] MEDS ORDERED: diazePAM 5 MG TABLET ONE (21:25)
== END 2017-09-20 22:06 | disposition home or self-care (01) ==
LOC: JERFT 19:31
DX: M54.5 Low back pain (principal); W19.XXXA Unspecified fall, initial encounter; Y93.E9 Activity, other interior property and clothing maintenance; Y92.018 Other place in single-family (private) house as the place of occurrence of the external cause
CPT/HCPCS: 72100-TC; 99281-25

== ENCOUNTER 2017-10-29 18:58 | Emergency (ER) | payer OTHER ==
[2017-10-29 19:56] VITALS: BP 128/82; PULSE 112; TEMP 98.7; BMI 27.0
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
[2017-10-29] MEDS ORDERED: KETOROLAC TROMETHAMINE 30 MG/1 ML VIAL IM ONE (21:51)
[2017-10-29] MEDS ORDERED: hydrOXYzine HCL 100 MG/2 ML VIAL IM ONE (21:51)
[2017-10-29] MEDS ORDERED: MEPERIDINE HCL CARPU-JECT 25 MG/1 ML DISP.SYRIN IM ONE (21:51)
[2017-10-29] MEDS ORDERED: KETOROLAC TROMETHAMINE 30 MG/1 ML VIAL ONE (22:36)
[2017-10-29] MEDS ORDERED: MEPERIDINE HCL CARPU-JECT 50 MG/1 ML DISP.SYRIN ONE (22:44)
[2017-10-29] MEDS ORDERED: hydrOXYzine PAMOATE 25 MG CAPSULE (FP) PO ONE (22:48)
[2017-10-29] MEDS ORDERED: hydrOXYzine HCL 25 MG TABLET (FP) PO ONE (22:49)
== END 2017-10-30 00:41 | disposition home or self-care (01) ==
LOC: JERFT 18:58
PROC: 3E0233Z Introduction of Anti-inflammatory into Muscle, Percutaneous Approach (ICD-10-PCS; principal; 2017-10-29)
PROC: 3E023NZ Introduction of Analgesics, Hypnotics, Sedatives into Muscle, Percutaneous Approach (ICD-10-PCS; 2017-10-29)
DX: M54.2 Cervicalgia (principal); M62.830 Muscle spasm of back; V49.59XA Passenger injured in collision with other motor vehicles in traffic accident, initial encounter; Y92.488 Other paved roadways as the place of occurrence of the external cause; Y93.89 Activity, other specified; Y99.8 Other external cause status; E78.00 Pure hypercholesterolemia, unspecified; Z86.73 Personal history of transient ischemic attack (TIA), and cerebral infarction without residual deficits; Z87.442 Personal history of urinary calculi
CPT/HCPCS: 72100-TC-FY; 72125-TC; 99281-25

== ENCOUNTER 2017-11-18 18:24 | Emergency (ER) | payer OTHER ==
[2017-11-18 18:34] VITALS: TEMP 99.1; BMI 27.3
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
--- NOTE | 2017-11-18 20:04 | PDOC ---
History of Present Illness - General Chief Complaint: Head/Neck problem Stated Complaint: NECK PAIN Time Seen by Provider: 11/18/17 19:21 Past History - Past Medical History Allergies/Adverse Reactions: Allergies Allergy/AdvReac Type Severity Reaction Status Date / Time hydromorphone HCl AdvReac Severe Low Blood Verified 11/18/17 18:30 [From Dilaudid] Pressure NSAIDS (Non-Steroidal AdvReac Intermediate Verified 11/18/17 18:30 Anti-Inflamma codeine [Codeine] AdvReac Mild Vomiting Verified 11/18/17 18:30 hydrocodone bitartrate AdvReac Mild Low Blood Verified 11/18/17 18:30 [From Vicodin] Pressure morphine AdvReac Mild Low Blood Verified 11/18/17 18:30 Pressure oxycodone [Oxycodone] AdvReac Mild Vomiting Verified 11/18/17 18:30 oxycodone HCl [From Percocet] AdvReac Mild Vomiting Verified 11/18/17 18:30 Home Medications: Ambulatory Orders Aspirin [Ecotrin] 81 mg PO ASDIR 08/06/15 Baclofen 10 mg PO DAILY PRN 08/06/15 Diazepam [Valium -] 10 mg PO HS 08/06/15 Meperidine HCl [Demerol -] 100 mg PO QID 05/22/16 Atorvastatin Ca [Lipitor] 10 mg PO HS 11/18/17 hydrOXYzine PAMOATE [Vistaril -] 50 mg PO TID 11/18/17 Anemia: No Asthma: No Cancer: No Cardiac Disorders: No CVA: Yes (2) COPD: No CHF: No DVT: No Dementia: No Diabetes: No Dialysis: No GI Disorders: Yes (UMBILICAL HERNIA; 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) Disorders: No HTN: No Hypercholesterolemia: Yes Kidney Stones: Yes (04/12/16) Liver Disease: No Psychiatric Problems: No Seizures: No - Surgical History Abdominal Surgery: Yes (6 HERNIA REPAIRS/HEMICOLECTOMY) GI Surgery: Yes (reconstruction of colon) Neurologic Surgery: Yes (laminectomy, spinal fusion, RECONSTRUCTION) Orthopedic Surgery: Yes - Immunization History Immunization Up to Date: Yes - Suicide/Smoking/Psychosocial Hx Smoking Status: Yes Smoking History: Former smoker Have you smoked in the past 12 months: No Number of Cigarettes Smoked Daily: 0 If you are a former smoker, when did you quit?: 25 years ago Information on smoking cessation initiated: No Hx Alcohol Use: No Drug/Substance Use Hx: No Substance Use Type: None Hx Substance Use Treatment: No *Physical Exam - Vital Signs Last Vital Signs Temp Pulse Resp BP Pulse Ox 99.1 F 109 H 18 151/80 96 11/18/17 18:30 11/18/17 18:30 11/18/17 18:30 11/18/17 18:30 11/18/17 18:30 ED Treatment Course - LABORATORY CBC & Chemistry Diagram: 11/18/17 19:58 11/18/17 19:58 - ADDITIONAL ORDERS Additional order review: 11/18/17 19:20 Group A Strep Rapid Antigen - Final Throat Medical Decision Making - Medical Decision Making 11/18/17 20:02 Pt upgraded from fast track for CP. Pt was tachycardic in fast track, but her HR is normal in the ER. Pt has a normal EKG and normal vitals and we will check cardiac enzymes. 11/18/17 20:30 Pt's CBC and her INR are normal 11/18/17 20:56 CXR normal; HR is now 80bpm at bedside. Exam normal. Lung yepez clear. Pt will be treated with IV tylenol and she will be discharged home with PMD follow up. *DC/Admit/Observation/Transfer Diagnosis at time of Disposition: Musculoskeletal back pain, Opioid dependence - Discharge Dispostion Disposition: HOME Condition at time of disposition: Stable Admit: No - Referrals Referrals: Chevy Lara MD [Primary Care Provider] - - Patient Instructions Printed Discharge Instructions: DI for Musculoskeletal Pain - Post Discharge Activity
[2017-11-18 20:08] LABS: BASO % 0.6 % (0-2.0); EOS % 1.6 % (0-4.5); HEMOGLOBIN 13.1 GM/dL (10.7-15.3); LYMPH % 28.8 % (8-40); MCH 31.4 pg (25.7-33.7); MCHC 34.5 g/dl (32.0-36.0); MEAN CELL VOLUME 91.1 fl (80-96); MONO % 5.2 % (3.8-10.2); NEUT % 63.8 % (42.8-82.8); PLATELET COUNT 272 K/MM3 (134-434); RBC 4.17 M/mm3 (3.60-5.2); RDW 13.1 % (11.6-15.6); WHITE BLOOD COUNT 9.9 K/mm3 (4.0-10.0)
[2017-11-18 20:19] LABS: PROTHROMBIN TIME (PATIENT) 11.3 SEC (9.98-11.88)
[2017-11-18 20:22] LABS: ACTIVATED PTT 28.9 SECONDS (26.9-34.4)
[2017-11-18 20:28] LABS: ALBUMIN 3.7 g/dl (3.4-5.0); ANION GAP 10 (8-16); BILIRUBIN,TOTAL 0.3 mg/dL (0.2-1.0); BLOOD UREA NITROGEN 11 mg/dL (7-18); CALCIUM 8.5 mg/dL (8.5-10.1); CHLORIDE 106 mmol/L (98-107); CO2 24 mmol/L (21-32); CREATININE 0.7 mg/dL (0.55-1.02); GLUCOSE,RANDOM 127 mg/dL (74-106); SGPT/ALT 29 U/L (12-78); SODIUM 140 mmol/L (136-145); TOT PROT 7.3 g/dl (6.4-8.2)
[2017-11-18 20:31] LABS: ALK PHOS 133 U/L (45-117)
[2017-11-18 20:44] LABS: POTASSIUM 3.9 mmol/L (3.5-5.1); SGOT/AST 19 U/L (15-37)
[2017-11-18] MEDS ORDERED: ACETAMINOPHEN 1000 MG/100 ML VIAL (NON FORMULARY) IVPB ONE (20:53)
[2017-11-18] MEDS ORDERED: ACETAMINOPHEN INJECTION 100 ML IVPB ONE (20:54)
[2017-11-18 21:29] VITALS: BP 150/80; PULSE 81
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
--- NOTE | 2017-11-19 14:23 | EKG ---
Test Reason : Blood Pressure : / mmHG Vent. Rate : 098 BPM Atrial Rate : 098 BPM P-R Int : 160 ms QRS Dur : 090 ms QT Int : 372 ms P-R-T Axes : 054 033 059 degrees QTc Int : 474 ms POOR DATA QUALITY, INTERPRETATION MAY BE ADVERSELY AFFECTED NORMAL SINUS RHYTHM POSSIBLE LEFT ATRIAL ENLARGEMENT BORDERLINE ECG Confirmed by MD LEANDRA, HEIDI ([id number]) on 11/19/2017 2:23:17 PM Referred By: Jae LEHMAN Confirmed By:HEIDI MOBLEY MD
== END 2017-11-18 21:30 | disposition home or self-care (01) ==
LOC: JERFT 18:24 → JER 18:24
PROC: 3E033NZ Introduction of Analgesics, Hypnotics, Sedatives into Peripheral Vein, Percutaneous Approach (ICD-10-PCS; principal; 2017-11-18)
DX: M79.1 Myalgia (principal); F11.20 Opioid dependence, uncomplicated; E78.00 Pure hypercholesterolemia, unspecified; Z86.73 Personal history of transient ischemic attack (TIA), and cerebral infarction without residual deficits; Z88.5 Allergy status to narcotic agent; Z88.2 Allergy status to sulfonamides; Z79.82 Long term (current) use of aspirin; Z87.442 Personal history of urinary calculi; Z87.891 Personal history of nicotine dependence
CPT/HCPCS: 36415; 71046-TC-FY; 80053; 82550; 84484; 85025; 85610; 85730; 87070; 87430; 93005; 93010; 99283-25

== ENCOUNTER 2018-02-17 01:57 | Emergency (ER) | payer OTHER ==
[2018-02-17 02:26] VITALS: BP 144/76; PULSE 96; TEMP 98.6; BMI 27.3
--- NOTE | 2018-02-17 02:52 | PDOC ---
Attending Attestation - Resident Resident Name: Thom Casarez - ED Attending Attestation I have performed the following: I have examined & evaluated the patient, The case was reviewed & discussed with the resident, I agree w/resident's findings & plan - HPI HPI: 02/18/18 02:04 Pt comes with chronic pains and request for pain meds. - Physicial Exam PE: 02/18/18 02:04 Agree with resident exam - Medical Decision Making 02/18/18 02:05 Pt's neck XR done. Pt has hardware in place and XT appears normal. Pt will be offered non-narcotics for analgesia. Follow with PMD.
[2018-02-17] MEDS ORDERED: METHOCARBAMOL 500 MG TABLET PO ONE (02:53)
[2018-02-17] MEDS ORDERED: IBUPROFEN 600 MG TABLET (FP) PO ONE ×2 (02:53→02:57)
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
[2018-02-17] MEDS ORDERED: METHOCARBAMOL 500 MG TABLET ONE (02:57)
[2018-02-17] MEDS ORDERED: KETOROLAC TROMETHAMINE 60 MG/2 ML VIAL IM ONE (03:29)
[2018-02-17] MEDS ORDERED: KETOROLAC TROMETHAMINE 60 MG/2 ML VIAL ONE (03:36)
== END 2018-02-17 03:44 | disposition home or self-care (01) ==
LOC: JER 01:57
PROC: 3E0233Z Introduction of Anti-inflammatory into Muscle, Percutaneous Approach (ICD-10-PCS; principal; 2018-02-17)
DX: M54.2 Cervicalgia (principal); E78.5 Hyperlipidemia, unspecified; Z86.73 Personal history of transient ischemic attack (TIA), and cerebral infarction without residual deficits; Z87.442 Personal history of urinary calculi
CPT/HCPCS: 72050-TC-FY; 99281-25

== ENCOUNTER 2018-02-23 16:39 | Emergency (ER) | payer OTHER ==
[2018-02-23 16:47] VITALS: BP 141/74; PULSE 99; TEMP 98; BMI 27.0
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
[2018-02-23] MEDS ORDERED: DIPHTH,PERTUSS(ACELL),TET 0.5 ML DISP.SYRIN IM ONE (17:23)
[2018-02-23] MEDS ORDERED: KETOROLAC TROMETHAMINE 30 MG/1 ML VIAL IM ONE (17:23)
[2018-02-23] MEDS ORDERED: KETOROLAC TROMETHAMINE 30 MG/1 ML VIAL ONE (17:24)
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
== END 2018-02-23 17:39 | disposition home or self-care (01) ==
LOC: JERFT 16:39
PROC: 3E0234Z Introduction of Serum, Toxoid and Vaccine into Muscle, Percutaneous Approach (ICD-10-PCS; principal; 2018-02-23)
PROC: 3E0233Z Introduction of Anti-inflammatory into Muscle, Percutaneous Approach (ICD-10-PCS; 2018-02-23)
DX: T23.031A Burn of unspecified degree of multiple right fingers (nail), not including thumb, initial encounter (principal); X19.XXXA Contact with other heat and hot substances, initial encounter; Y93.G3 Activity, cooking and baking; Y92.000 Kitchen of unspecified non-institutional (private) residence as the place of occurrence of the external cause; E78.00 Pure hypercholesterolemia, unspecified; Z87.891 Personal history of nicotine dependence
CPT/HCPCS: 90715; 99281-25

== ENCOUNTER 2018-06-06 22:17 | Emergency (ER) | payer OTHER ==
[2018-06-06 22:31] VITALS: BMI 26.0
--- NOTE | 2018-06-07 01:20 | PDOC ---
History of Present Illness - General Chief Complaint: Pain Stated Complaint: RT ARM PAIN Time Seen by Provider: 06/07/18 01:08 History Source: Patient - History of Present Illness Initial Comments: 06/07/18 03:27 68 year old female with chronic pain and back surgeries c/o neck pain radiating down to right arm x 2 month. today took regular dose of demerol with no improvement in pain to right lateral neck radiating to right arm. recent admission to [facility] for right arm weakness s/p cervical epidural with full work up. Past History - Past Medical History Allergies/Adverse Reactions: Allergies Allergy/AdvReac Type Severity Reaction Status Date / Time hydromorphone HCl AdvReac Severe Low Blood Verified 06/06/18 22:31 [From Dilaudid] Pressure NSAIDS (Non-Steroidal AdvReac Intermediate Verified 06/06/18 22:31 Anti-Inflamma codeine [Codeine] AdvReac Mild Vomiting Verified 06/06/18 22:31 hydrocodone bitartrate AdvReac Mild Low Blood Verified 06/06/18 22:31 [From Vicodin] Pressure morphine AdvReac Mild Low Blood Verified 06/06/18 22:31 Pressure oxycodone [Oxycodone] AdvReac Mild Vomiting Verified 06/06/18 22:31 oxycodone HCl [From Percocet] AdvReac Mild Vomiting Verified 06/06/18 22:31 Home Medications: Ambulatory Orders Aspirin [Ecotrin] 81 mg PO ASDIR 08/06/15 Baclofen 10 mg PO DAILY PRN 08/06/15 Diazepam [Valium -] 10 mg PO HS 08/06/15 Meperidine HCl [Demerol -] 100 mg PO QID 05/22/16 Atorvastatin Ca [Lipitor] 10 mg PO HS 11/18/17 hydrOXYzine PAMOATE [Vistaril -] 50 mg PO TID 11/18/17 Anemia: No Asthma: No Cancer: No Cardiac Disorders: No CVA: Yes (2) COPD: No CHF: No DVT: No Dementia: No Diabetes: No Dialysis: No GI Disorders: Yes (UMBILICAL HERNIA; 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) Disorders: No HTN: No Hypercholesterolemia: Yes Kidney Stones: Yes (04/12/16) Liver Disease: No Psychiatric Problems: No Seizures: No - Surgical History Abdominal Surgery: Yes (6 HERNIA REPAIRS/HEMICOLECTOMY) GI Surgery: Yes (reconstruction of colon) Neurologic Surgery: Yes (laminectomy, spinal fusion, RECONSTRUCTION) Orthopedic Surgery: Yes - Immunization History Immunization Up to Date: Yes - Suicide/Smoking/Psychosocial Hx Smoking Status: Yes Smoking History: Never smoked Have you smoked in the past 12 months: No Number of Cigarettes Smoked Daily: 0 If you are a former smoker, when did you quit?: 25 years ago Hx Alcohol Use: No Drug/Substance Use Hx: No Substance Use Type: None Hx Substance Use Treatment: No *Physical Exam - Vital Signs Last Vital Signs Temp Pulse Resp BP Pulse Ox 97.9 F 82 18 127/79 98 06/06/18 22:27 06/06/18 22:27 06/06/18 22:27 06/06/18 22:27 06/06/18 22:27 - Physical Exam General Appearance: Yes: Appropriately Dressed Respiratory/Chest: positive: Lungs Clear, Normal Breath Sounds Cardiovascular: positive: Regular Rhythm, Regular Rate Musculoskeletal: positive: Normal Inspection, Other (lateral neck pain radiating down arm) Extremity: positive: Normal Inspection, Normal Range of Motion Neurologic: positive: Fully Oriented, Alert, Normal Mood/Affect Medical Decision Making - Medical Decision Making 06/08/18 22:10 Acute on chronic pain P: pain control NSaids outpatient neurosurgery follow up *DC/Admit/Observation/Transfer Diagnosis at time of Disposition: Neck pain on right side - Discharge Dispostion Disposition: HOME Condition at time of disposition: Stable - Referrals Referrals: Tucker Garcia MD [Primary Care Provider] - - Patient Instructions Printed Discharge Instructions: DI for Chronic Neck Pain Additional Instructions: please follow up with your pain management doctor as soon as possible. you should also follow up with your neurosurgeon as scheduled. return to the ER if symptoms worsen, - Post Discharge Activity
[2018-06-07] MEDS ORDERED: MEPERIDINE HCL CARPU-JECT 25 MG/1 ML DISP.SYRIN IM ONE (01:37)
[2018-06-07] MEDS ORDERED: MEPERIDINE HCL CARPU-JECT 50 MG/1 ML DISP.SYRIN ONE (01:49)
[2018-06-07] MEDS ORDERED: KETOROLAC TROMETHAMINE 30 MG/1 ML VIAL IM ONE (02:36)
[2018-06-07] MEDS ORDERED: KETOROLAC TROMETHAMINE 30 MG/1 ML VIAL ONE (02:47)
[2018-06-07 03:52] VITALS: BP 126/78; PULSE 88; TEMP 98.5
== END 2018-06-07 03:52 | disposition home or self-care (01) ==
LOC: JER 22:17
PROC: 3E0233Z Introduction of Anti-inflammatory into Muscle, Percutaneous Approach (ICD-10-PCS; principal; 2018-06-06)
PROC: 3E023NZ Introduction of Analgesics, Hypnotics, Sedatives into Muscle, Percutaneous Approach (ICD-10-PCS; 2018-06-06)
DX: M54.2 Cervicalgia (principal); E78.00 Pure hypercholesterolemia, unspecified
CPT/HCPCS: 99282-25

== ENCOUNTER 2018-10-10 21:07 | Emergency (ER) | payer OTHER ==
--- NOTE | 2018-10-10 21:11 | PDOC ---
Rapid Medical Evaluation Time Seen by Provider: 10/10/18 21:09 Medical Evaluation: Allergies Allergy/AdvReac Type Severity Reaction Status Date / Time hydromorphone HCl AdvReac Severe Low Blood Verified 06/06/18 22:31 [From Dilaudid] Pressure NSAIDS (Non-Steroidal AdvReac Intermediate Verified 06/06/18 22:31 Anti-Inflamma codeine [Codeine] AdvReac Mild Vomiting Verified 06/06/18 22:31 hydrocodone bitartrate AdvReac Mild Low Blood Verified 06/06/18 22:31 [From Vicodin] Pressure morphine AdvReac Mild Low Blood Verified 06/06/18 22:31 Pressure oxycodone [Oxycodone] AdvReac Mild Vomiting Verified 06/06/18 22:31 oxycodone HCl [From Percocet] AdvReac Mild Vomiting Verified 06/06/18 22:31 10/10/18 21:09 I performed a brief in-person evaluation of this patient. Chief complaint: Right lower back pain, hx kidney stones 3 yrs ago as well as chronic back pain. Pertinent physical exam findings: Right CVA tenderness. Normal strength and sensation. I have ordered the following: UA/culture The patient will proceed to the ED for further evaluation. Discharge Disposition - Diagnosis Flank pain - Referrals - Patient Instructions - Post Discharge Activity
[2018-10-10 21:14] VITALS: BP 146/67; PULSE 96; BMI 31.8
[2018-10-10 21:39] LABS: URINE APPEARANCE CLEAR; URINE BILIRUBIN NEGATIVE (<2.0 mg/dL); URINE COLOR LTYELLOW; URINE GLUCOSE (UA) NEGATIVE (NEGATIVE); URINE KETONE NEGATIVE (NEGATIVE); URINE LEUK ESTERASE 2+ (NEGATIVE); URINE NITRITE NEGATIVE (NEGATIVE); URINE PROTEIN NEGATIVE (NEGATIVE); URINE UROBILINOGEN NEGATIVE mg/dL (0.2-1.0)
[2018-10-10 22:28] LABS: EPI CELLS RARE /HPF (FEW); URINE MUCUS RARE
--- NOTE | 2018-10-10 22:57 | PDOC ---
Attending Attestation - HPI HPI: This patient is a 68 year old female, with PMHx of neck pain, CVA (18 years ago) , HLD, umbilical hernia on chronic pain management, left sided kidney stones (3 yrs ago, treated with lithotripsy) who presents with 6 days of right-sided lower back pain. She states that this feels similar to her past kidney stones. She rates the back pain as intermittent, colicky, radiates to right groin, rates 10/10. She notes associated chills, dysuria, frequency, and diarrhea for 6 days. She also notes shortness of breath on exertion which she states is new for her. Denies any fevers, hematuria, chest pain, abdominal pain. Allergies: Hydromorphone, NSAIDs Social Hx: No EtOH, tobacco, or illicit drug use PCP: Tucker Garcia Urologist: Rafael - Physicial Exam PE: GENERAL: Awake, alert, and fully oriented, in no acute distress HEAD: No signs of trauma EYES: PERRLA, EOMI, sclera anicteric, conjunctiva clear ENT: Auricles normal inspection, hearing grossly normal, nares patent, oropharynx clear without exudates. Moist mucosa NECK: Normal ROM, supple, no lymphadenopathy, JVD, or masses LUNGS: Breath sounds equal, clear to auscultation bilaterally. No wheezes, and no crackles HEART: Regular rate and rhythm, normal S1 and S2, no murmurs, rubs or gallops ABDOMEN: Soft, right-sided CVA tenderness, mild suprapubic abdominal tenderness. Normoactive bowel sounds. No guarding, no rebound. No masses EXTREMITIES: Normal range of motion, no edema. No clubbing or cyanosis. No cords, erythema, or tenderness NEUROLOGICAL: Cranial nerves II through XII grossly intact. Normal speech, normal gait SKIN: Warm, Dry, normal turgor, no rashes or lesions noted. <Tomeka Jennings - Last Filed: 10/10/18 23:38> - Resident Resident Name: Ramsey Carbajal - ED Attending Attestation I have performed the following: I have examined & evaluated the patient, The case was reviewed & discussed with the resident, I agree w/resident's findings & plan, Exceptions are as noted - Medical Decision Making 10/10/18 22:56 I, Dr. Lois Tomlin, DO, attest that this document has been prepared under my direction and personally reviewed by me in its entirety. I further attest, that it accurately reflects all work, treatment, procedures and medical decision -making performed by me. 10/10/18 23:53 a/p: 68yo female with hx of renal colic/stones with R flank pain and dysuria -concern for pyelo vs infected stone vs kidney stone -will send labs, ekg, cxr, ct abd/pelvis to eval for R flank pain -states sob started at the same time as R flank pain, no cp -suspect sob from the pain -pt in pain management - on demerol at home, allergic to most pain medications -will give an iv demerol dose in the Ed -will monitor and reassess -UA from triage shows a UTI, will need abx 10/11/18 00:44 renal function normal small elevated wbc pending ct 10/11/18 02:16 ct does not show a stone no pyelo will give abx and follow up with urology- Dr. Hall <Lois Tomlin - Last Filed: 10/11/18 02:19>
--- NOTE | 2018-10-10 23:17 | PDOC ---
History of Present Illness - General Chief Complaint: Chronic pain Stated Complaint: BACK PAIN Time Seen by Provider: 10/10/18 21:09 History Source: Patient Exam Limitations: No Limitations - History of Present Illness Initial Comments: 10/10/18 23:13 68 yo F with a hx of infected stone (3 years ago; required lithotripsy), chronic low back pain, and HLD presents to the emergency department with right lower back pain for the past 6 days. Per the patient, this pain is similar to the last time she had an infected kidney stone. Pain is described as colicky, intermittent, radiates to the right groin, 06/27 with the following associative symptoms: chills, Past History - Past Medical History Allergies/Adverse Reactions: Allergies Allergy/AdvReac Type Severity Reaction Status Date / Time hydromorphone HCl AdvReac Severe Low Blood Verified 06/06/18 22:31 [From Dilaudid] Pressure NSAIDS (Non-Steroidal AdvReac Intermediate Verified 06/06/18 22:31 Anti-Inflamma codeine [Codeine] AdvReac Mild Vomiting Verified 06/06/18 22:31 hydrocodone bitartrate AdvReac Mild Low Blood Verified 06/06/18 22:31 [From Vicodin] Pressure morphine AdvReac Mild Low Blood Verified 06/06/18 22:31 Pressure oxycodone [Oxycodone] AdvReac Mild Vomiting Verified 06/06/18 22:31 oxycodone HCl [From Percocet] AdvReac Mild Vomiting Verified 06/06/18 22:31 Home Medications: Ambulatory Orders Aspirin [Ecotrin] 81 mg PO ASDIR 08/06/15 Baclofen 10 mg PO DAILY PRN 08/06/15 Diazepam [Valium -] 10 mg PO HS 08/06/15 Meperidine HCl [Demerol -] 100 mg PO QID 05/22/16 Atorvastatin Ca [Lipitor] 10 mg PO HS 11/18/17 hydrOXYzine PAMOATE [Vistaril -] 50 mg PO TID 11/18/17 Cephalexin Monohydrate [Keflex -] 500 mg PO BID #14 capsule 10/11/18 Anemia: No Asthma: No Cancer: No Cardiac Disorders: No CVA: Yes (2) COPD: No CHF: No DVT: No Dementia: No Diabetes: No Dialysis: No GI Disorders: Yes (UMBILICAL HERNIA; 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) Disorders: No HTN: No Hypercholesterolemia: Yes Kidney Stones: Yes (04/12/16) Liver Disease: No Psychiatric Problems: No Seizures: No - Surgical History Abdominal Surgery: Yes (6 HERNIA REPAIRS/HEMICOLECTOMY) GI Surgery: Yes (reconstruction of colon) Neurologic Surgery: Yes (laminectomy, spinal fusion, RECONSTRUCTION) Orthopedic Surgery: Yes - Immunization History Immunization Up to Date: Yes - Suicide/Smoking/Psychosocial Hx Smoking Status: Yes Smoking History: Never smoked Have you smoked in the past 12 months: No Number of Cigarettes Smoked Daily: 0 If you are a former smoker, when did you quit?: 25 years ago Information on smoking cessation initiated: No Hx Alcohol Use: No Drug/Substance Use Hx: No Substance Use Type: None Hx Substance Use Treatment: No *Physical Exam - Vital Signs Last Vital Signs Temp Pulse Resp BP Pulse Ox 96 H 18 146/67 98 10/10/18 21:11 10/10/18 21:11 10/10/18 21:11 10/10/18 21:11 Moderate Sedation - Procedure Monitoring Vital Signs: Procedure Monitoring Vital Signs Temperature Pulse Rate 96 H 10/10/18 21:11 Respiratory Rate 18 10/10/18 21:11 Blood Pressure 146/67 10/10/18 21:11 O2 Sat by Pulse Oximetry (%) 98 10/10/18 21:11 ED Treatment Course - LABORATORY CBC & Chemistry Diagram: 10/10/18 23:47 10/10/18 23:47 - ADDITIONAL ORDERS Additional order review: Laboratory Results 10/10/18 21:15 Urine Color Ltyellow Urine Appearance Clear Urine pH 6.0 Ur Specific Garber 1.023 Urine Protein Negative Urine Glucose (UA) Negative Urine Ketones Negative Urine Blood Negative Urine Nitrite Negative Urine Bilirubin Negative Urine Urobilinogen Negative Ur Leukocyte Esterase 2+ H Urine WBC (Auto) 21 Urine RBC (Auto) None Ur Epithelial Cells Rare Urine Mucus Rare *DC/Admit/Observation/Transfer Diagnosis at time of Disposition: Flank pain Urinary tract infection Qualifiers: Urinary tract infection type: site unspecified Hematuria presence: without hematuria Qualified Code(s): N39.0 - Urinary tract infection, site not specified - Discharge Dispostion Disposition: HOME Decision to Admit order: No - Prescriptions Prescriptions: Cephalexin Monohydrate [Keflex -] 500 mg PO BID #14 capsule - Referrals Referrals: Tucker Garcia MD [Primary Care Provider] - Mark Britton MD [Staff Physician] - - Patient Instructions Printed Discharge Instructions: DI for Urinary Tract Infection (UTI) Additional Instructions: you were seen for right lower back pain. no stone was on CT that is obstructing your urine flow. we gave you antibiotics here and will prescribe you antibiotics to take at home twice a day for 7 days. please follow up with your urologist within 7 days for follow up care and management. please return to the emergency department if you have fevers with pain on urination, chest pain, intractable vomiting, and uncontrollable nausea and vomiting. Thank you. - Post Discharge Activity
[2018-10-10] MEDS ORDERED: ACETAMINOPHEN 1000 MG/100 ML VIAL (NON FORMULARY) IVPB ONE (23:21)
[2018-10-10] MEDS ORDERED: METHOCARBAMOL 500 MG TABLET PO ONE (23:44)
[2018-10-10] MEDS ORDERED: BACLOFEN 10 MG TABLET (FP) PO ONE (23:49)
[2018-10-10] MEDS ORDERED: DOCUSATE SODIUM 100 MG CAPSULE (FP) PO ONE (23:57)
[2018-10-10] MEDS ORDERED: MEPERIDINE HCL CARPU-JECT 50 MG/1 ML DISP.SYRIN IVPUSH ONE (23:57)
[2018-10-10 23:59] LABS: BASO % 0.2 % (0-2.0); HEMATOCRIT 38.8 % (32.4-45.2); HEMOGLOBIN 13.2 GM/dL (10.7-15.3); LYMPH % 30.8 % (8-40); MCHC 34.1 g/dl (32.0-36.0); MEAN CELL VOLUME 90.9 fl (80-96); MEAN PLT VOLUME 7.4 fl (7.5-11.1); MONO % 5.1 % (3.8-10.2); NEUT % 61.9 % (42.8-82.8); PLATELET COUNT 322 K/MM3 (134-434); RBC 4.27 M/mm3 (3.60-5.2); RDW 13.8 % (11.6-15.6); WHITE BLOOD COUNT 10.8 K/mm3 (4.0-10.0)
[2018-10-11] MEDS ORDERED: MEPERIDINE HCL CARPU-JECT 50 MG/1 ML DISP.SYRIN ONE (00:07)
[2018-10-11] MEDS ORDERED: DOCUSATE SODIUM 100 MG CAPSULE (FP) PO ONE (00:07)
[2018-10-11] MEDS ORDERED: BACLOFEN 10 MG TABLET (FP) ONE (00:07)
[2018-10-11] MEDS ORDERED: ACETAMINOPHEN INJECTION 100 ML IVPB ONE (00:07)
[2018-10-11 00:34] LABS: ALBUMIN 3.7 g/dl (3.4-5.0); ALK PHOS 114 U/L (45-117); ANION GAP 9 MMOL/L (8-16); BILIRUBIN,TOTAL 0.2 mg/dL (0.2-1); BLOOD UREA NITROGEN 17 mg/dL (7-18); CALCIUM 8.6 mg/dL (8.5-10.1); CHLORIDE 106 mmol/L (98-107); CO2 27 mmol/L (21-32); CREATININE 0.6 mg/dL (0.55-1.3); GLUCOSE,RANDOM 106 mg/dL (74-106); SGOT/AST 22 U/L (15-37); SGPT/ALT 44 U/L (13-61); SODIUM 142 mmol/L (136-145); TOT PROT 7.4 g/dl (6.4-8.2)
[2018-10-11] MEDS ORDERED: CEFTRIAXONE 1 GM in DEXTROSE 5%-WATER - 100 ML IVPB ONE (01:59)
[2018-10-11] MEDS ORDERED: CEFTRIAXONE 1 GM/50 ML BAG ONE (02:14)
== END 2018-10-11 02:42 | disposition home or self-care (01) ==
LOC: JER 21:07
PROC: 3E033NZ Introduction of Analgesics, Hypnotics, Sedatives into Peripheral Vein, Percutaneous Approach (ICD-10-PCS; principal; 2018-10-10)
PROC: 3E03329 Introduction of Other Anti-infective into Peripheral Vein, Percutaneous Approach (ICD-10-PCS; 2018-10-10)
DX: R10.31 Right lower quadrant pain (principal); N39.0 Urinary tract infection, site not specified; Z87.891 Personal history of nicotine dependence; E78.00 Pure hypercholesterolemia, unspecified; Z86.73 Personal history of transient ischemic attack (TIA), and cerebral infarction without residual deficits
CPT/HCPCS: 36415; 74176; 80053; 81003; 81015; 82550; 84484; 85025; 86850; 86900; 86901; 87086; 99281-25; J0131; J0475

== ENCOUNTER 2018-12-07 14:53 | Emergency (ER) | payer OTHER ==
--- NOTE | 2018-12-07 15:01 | PDOC ---
Rapid Medical Evaluation Time Seen by Provider: 12/07/18 14:59 Medical Evaluation: Allergies Allergy/AdvReac Type Severity Reaction Status Date / Time hydromorphone HCl AdvReac Severe Low Blood Verified 06/06/18 22:31 [From Dilaudid] Pressure NSAIDS (Non-Steroidal AdvReac Intermediate Verified 06/06/18 22:31 Anti-Inflamma codeine [Codeine] AdvReac Mild Vomiting Verified 06/06/18 22:31 hydrocodone bitartrate AdvReac Mild Low Blood Verified 06/06/18 22:31 [From Vicodin] Pressure morphine AdvReac Mild Low Blood Verified 06/06/18 22:31 Pressure oxycodone [Oxycodone] AdvReac Mild Vomiting Verified 06/06/18 22:31 oxycodone HCl [From Percocet] AdvReac Mild Vomiting Verified 06/06/18 22:31 12/07/18 14:59 I have performed a brief in-person evaluation of this patient. The patient presents with a chief complaint of:Sent by Urgent Care for allergic urticaria given prednisone and steroid cream for R hand Pertinent physical exam findings:NAD I have ordered the following: Nothing Discharge Disposition - Diagnosis Contact dermatitis - Referrals - Patient Instructions - Post Discharge Activity
[2018-12-07 15:03] VITALS: BP 127/77; PULSE 92; TEMP 98.6; BMI 27.0
[2018-12-07] MEDS ORDERED: LORATADINE 10 MG TABLET PO ONE (15:38)
[2018-12-07] MEDS ORDERED: LORATADINE 10 MG TABLET ONE (15:48)
--- NOTE | 2018-12-07 16:39 | PDOC ---
History of Present Illness - General Chief Complaint: Rash Stated Complaint: RT HAND BLISTERS Time Seen by Provider: 12/07/18 14:59 History Source: Patient Exam Limitations: No Limitations Past History - Travel Traveled outside of the country in the last 30 days: No Close contact w/someone who was outside of country & ill: No - Past Medical History Allergies/Adverse Reactions: Allergies Allergy/AdvReac Type Severity Reaction Status Date / Time hydromorphone HCl AdvReac Severe Low Blood Verified 06/06/18 22:31 [From Dilaudid] Pressure NSAIDS (Non-Steroidal AdvReac Intermediate Verified 06/06/18 22:31 Anti-Inflamma codeine [Codeine] AdvReac Mild Vomiting Verified 06/06/18 22:31 hydrocodone bitartrate AdvReac Mild Low Blood Verified 06/06/18 22:31 [From Vicodin] Pressure morphine AdvReac Mild Low Blood Verified 06/06/18 22:31 Pressure oxycodone [Oxycodone] AdvReac Mild Vomiting Verified 06/06/18 22:31 oxycodone HCl [From Percocet] AdvReac Mild Vomiting Verified 06/06/18 22:31 Home Medications: Ambulatory Orders Aspirin [Ecotrin] 81 mg PO ASDIR 08/06/15 Baclofen 10 mg PO DAILY PRN 08/06/15 Diazepam [Valium -] 10 mg PO HS 08/06/15 Meperidine HCl [Demerol -] 100 mg PO QID 05/22/16 Atorvastatin Ca [Lipitor] 10 mg PO HS 11/18/17 hydrOXYzine PAMOATE [Vistaril -] 50 mg PO TID 11/18/17 Cephalexin Monohydrate [Keflex -] 500 mg PO BID #14 capsule 10/11/18 Cetirizine HCl [Zyrtec -] 10 mg PO DAILY #30 tablet 12/07/18 Mupirocin Ointment [Bactroban 2% Ointment -] 1 applic TP BID #1 tube 12/07/18 predniSONE [Deltasone -] 20 mg PO DAILY 12/07/18 Anemia: No Asthma: No Cancer: No Cardiac Disorders: No CVA: Yes (2) COPD: No CHF: No DVT: No Dementia: No Diabetes: No Dialysis: No GI Disorders: Yes (UMBILICAL HERNIA; 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) Disorders: No HTN: No Hypercholesterolemia: Yes Kidney Stones: Yes (04/12/16) Liver Disease: No Psychiatric Problems: No Seizures: No - Surgical History Abdominal Surgery: Yes (6 HERNIA REPAIRS/HEMICOLECTOMY) GI Surgery: Yes (reconstruction of colon) Neurologic Surgery: Yes (laminectomy, spinal fusion, RECONSTRUCTION) Orthopedic Surgery: Yes - Immunization History Immunization Up to Date: Yes - Suicide/Smoking/Psychosocial Hx Smoking Status: Yes Smoking History: Never smoked Have you smoked in the past 12 months: No Number of Cigarettes Smoked Daily: 0 If you are a former smoker, when did you quit?: 25 years ago Information on smoking cessation initiated: No Hx Alcohol Use: No Drug/Substance Use Hx: No Substance Use Type: None Hx Substance Use Treatment: No Review of Systems - Review of Systems Able to Perform ROS?: Yes Comments:: 12/07/18 18:30 CONSTITUTIONAL: Absent: fever, chills, diaphoresis, generalized weakness, malaise, loss of appetite HEENT: Absent: rhinorrhea, nasal congestion, throat pain, throat swelling, difficulty swallowing, mouth swelling, ear pain, eye pain, visual Changes CARDIOVASCULAR: Absent: chest pain, loss of consciousness, palpitations, irregular heart rate, peripheral edema RESPIRATORY: Absent: cough, shortness of breath, dyspnea with exertion, orthopnea, wheezing, stridor, hemoptysis GASTROINTESTINAL: Absent: abdominal pain, abdominal distension, nausea, vomiting, diarrhea, constipation, melena, hematochezia GENITOURINARY: Absent: dysuria, frequency, urgency, hesitancy, hematuria, flank pain, genital pain MUSCULOSKELETAL: Absent: myalgia, arthralgia, joint swelling SKIN: Present: rash Absent: itching, pallor HEMATOLOGIC/IMMUNOLOGIC: Absent: easy bleeding, easy bruising, lymphadenopathy, frequent infections ENDOCRINE: Absent: unexplained weight gain, unexplained weight loss, heat intolerance, cold intolerance NEUROLOGIC: Absent: headache, focal weakness or paresthesias, dizziness, unsteady gait, seizure, mental status changes, bladder or bowel incontinence PSYCHIATRIC: Absent: anxiety, depression, suicidal or homicidal ideation, hallucinations. Is the patient limited Syriac proficient: No *Physical Exam - Vital Signs Last Vital Signs Temp Pulse Resp BP Pulse Ox 98.6 F 92 H 20 127/77 100 12/07/18 14:59 12/07/18 14:59 12/07/18 14:59 12/07/18 14:59 12/07/18 14:59 - Physical Exam Comments: 12/07/18 23:36 GENERAL: Well developed, well nourished. Awake and alert. No acute distress. HEENT: Normocephalic, atraumatic. PERRLA, EOMI. No conjunctival pallor. Sclera are non- icteric. Moist mucous membranes. Oropharynx is clear. NECK: Supple. Full ROM. No JVD. Carotid pulses 2+ and symmetric, without bruits. No thyromegaly. No lymphadenopathy. MUSCULOSKELETAL Normal range of motion at all joints. No bony deformities or tenderness. No CVA tenderness. EXTREMITIES: No cyanosis. No clubbing. No edema. No calf tenderness. SKIN: Hives to the L palm with associated redness. Rash is blanching. Warm and dry. Normal capillary refill. No rashes. No jaundice. NEUROLOGICAL: Alert, awake, appropriate. Cranial nerves 2-12 intact. No deficits to light touch and temperature in face, upper extremities and lower extremities. No motor deficits in the in face, upper extremities and lower extremities. Normoreflexic in the upper and lower extremities. Normal speech. Toes are down- going bilaterally. Gait is normal without ataxia. PSYCHIATRIC: Cooperative. Good eye contact. Appropriate mood and affect. Moderate Sedation - Procedure Monitoring Vital Signs: Procedure Monitoring Vital Signs Temperature 98.6 F 12/07/18 14:59 Pulse Rate 92 H 12/07/18 14:59 Respiratory Rate 20 12/07/18 14:59 Blood Pressure 127/77 12/07/18 14:59 O2 Sat by Pulse Oximetry (%) 100 12/07/18 14:59 ED Treatment Course - Medications Given in the ED: ED Medications Discontinued Medications Generic Name Dose Route Start Last Admin Trade Name Freq PRN Reason Stop Dose Admin Loratadine 10 mg 12/07/18 15:38 12/07/18 15:54 Claritin - PO 12/07/18 15:39 10 mg ONCE ONE Administration Medical Decision Making - Medical Decision Making 12/07/18 23:37 The patient is a 68-year-old female who presents to the ER for evaluation of rash to her left palm. Patient states she was washing a carpet in a hotel room with a wet washcloth when the rash started. She states that the dust caused by cleaning the carpet caused her to have coughing and difficulty breathing. She went to urgent care for evaluation of her symptoms or she is diagnosed with an ALLERGIC dermatitis and given prednisone and steroid cream. She presents for reevaluation at this time. Patient is right-hand dominant. A/P: ALLERGIC reaction. Suspect ALLERGIC dermatitis from contaminants in the carpet. We'll add antihistamine to patient's regimen. Ice applied with relief of symptoms. Discharge home I discussed the physical exam findings, ancillary test results and final diagnoses with the patient. I answered all of the patient's questions. The patient was satisfied with the care received and felt comfortable with the discharge plan and treatment plan. The Patient agrees to follow up with the primary care physician/specialist within 24-72 hours. Return precautions were given. *DC/Admit/Observation/Transfer Diagnosis at time of Disposition: Contact dermatitis Qualifiers: Contact dermatitis type: allergic Contact dermatitis trigger: unspecified trigger Qualified Code(s): L23.9 - Allergic contact dermatitis, unspecified cause - Discharge Dispostion Disposition: HOME Condition at time of disposition: Stable Decision to Admit order: No - Prescriptions Prescriptions: Cetirizine HCl [Zyrtec -] 10 mg PO DAILY #30 tablet Mupirocin Ointment [Bactroban 2% Ointment -] 1 applic TP BID #1 tube - Referrals Referrals: Pankaj Stein MD [Primary Care Provider] - Sydney Ashby MD [Staff Physician] - - Patient Instructions Printed Discharge Instructions: DI for Contact Dermatitis Additional Instructions: You were evaluated for your rash today. You have hives which is most likely from an allergic reaction from the dirt from washing the rug in the hotel Please continue the prednisone you were previously prescribed (cream and pills) Take the zyrtec daily Keep the hives clean and dry You may apply mupriocin to the hives if they should open Follow up with dermatology if your symptoms are not improving. A referral has been provided to you Return to the ED for any new or worsening symptoms - Post Discharge Activity Forms/Work/School Notes: Back to Work
== END 2018-12-07 16:51 | disposition home or self-care (01) ==
LOC: JERFT 14:53
DX: L23.9 Allergic contact dermatitis, unspecified cause (principal); E78.00 Pure hypercholesterolemia, unspecified; Z86.73 Personal history of transient ischemic attack (TIA), and cerebral infarction without residual deficits
CPT/HCPCS: 99281-25

== ENCOUNTER 2019-01-06 02:18 | Observation (INO) | payer OTHER ==
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
[2019-01-06 03:22] LABS: BASO % 0.7 % (0-2.0); HEMATOCRIT 38.4 % (32.4-45.2); HEMOGLOBIN 13.1 GM/dL (10.7-15.3); LYMPH % 27.8 % (8-40); MCH 32.3 pg (25.7-33.7); MEAN CELL VOLUME 95.1 fl (80-96); MEAN PLT VOLUME 7.3 fl (7.5-11.1); MONO % 4.5 % (3.8-10.2); PLATELET COUNT 295 K/MM3 (134-434); RBC 4.04 M/mm3 (3.60-5.2); RDW 14.1 % (11.6-15.6)
[2019-01-06 03:53] LABS: ALBUMIN 3.7 g/dl (3.4-5.0); ALK PHOS 93 U/L (45-117); ANION GAP 7 MMOL/L (8-16); BILIRUBIN,TOTAL 0.2 mg/dL (0.2-1); BLOOD UREA NITROGEN 21 mg/dL (7-18); CALCIUM 9.2 mg/dL (8.5-10.1); CHLORIDE 107 mmol/L (98-107); CO2 27 mmol/L (21-32); CREATININE 0.7 mg/dL (0.55-1.3); GLUCOSE,RANDOM 131 mg/dL (74-106); POTASSIUM 4.1 mmol/L (3.5-5.1); SGOT/AST 15 U/L (15-37); SGPT/ALT 27 U/L (13-61); SODIUM 141 mmol/L (136-145); TOT PROT 7.4 g/dl (6.4-8.2)
[2019-01-06] MEDS ORDERED: ACETAMINOPHEN 1000 MG/100 ML VIAL (NON FORMULARY) IVPB ONE (03:56)
[2019-01-06] MEDS ORDERED: ACETAMINOPHEN INJECTION 100 ML IVPB ONE (03:57)
--- NOTE | 2019-01-06 04:11 | PDOC ---
Attending Attestation - Resident Resident Name: Gustavo Andre - ED Attending Attestation I have performed the following: I have examined & evaluated the patient, The case was reviewed & discussed with the resident, I agree w/resident's findings & plan - HPI HPI: 01/06/19 04:10 Pt comes with chest pain. She has no other complaints. - Physicial Exam PE: 01/06/19 04:10 Agree with resident exam. - Medical Decision Making 01/06/19 04:10 Pt will be admitted to telelmetry unit. Heart Score/ECG Review - QRS Poor R Wave Progression: No Q Wave Present: No - ST and T Early Repolarization: No Non Specific ST-T Wave changes: No Flattened T Waves: No Prolonged Q-T Interval: No - ECG Impressions Normal ECG: Yes Non-specific ST Elevation: No Ischemic Changes: Yes (septal)
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
[2019-01-06] MEDS ORDERED: BACLOFEN 10 MG TABLET (FP) PO PRN (05:19)
[2019-01-06] MEDS ORDERED: ASPIRIN COATED 81 MG TABLET.EC PO SCH (05:30)
[2019-01-06] MEDS ORDERED: MEPERIDINE HCL 50 MG TABLET PO SCH ×3 (06:20→10:00)
[2019-01-06] MEDS ORDERED: diazePAM 5 MG TABLET ONE (06:23)
[2019-01-06] MEDS ORDERED: MEPERIDINE HCL 50 MG TABLET PO ONE (06:48)
--- NOTE | 2019-01-06 07:38 | PN ---
Progress Note (short form) - Note Progress Note: 67 year old old female with chronic back pain s/p multiple surgeries, c/o chest pain and shortness of breath which started 1am on 01/06 while patient was resting which was associated with some shortness of breath. Pain lasted about 2 hours. Some radiation to left upper extremity. she is better today and has no pain no fever she hasnt received the pain meds vs Vital Signs Period Temp Pulse Resp BP Sys/Ariza Pulse Ox Last 24 Hr 98.3 F 86 24 136/75 98 Heent nad neck supple lungs clear heart normal heart sounds ext no edema Laboratory Results - last 24 hr 01/06/19 01/06/19 01/06/19 03:14 03:14 03:14 WBC 11.0 H RBC 4.04 Hgb 13.1 Hct 38.4 MCV 95.1 MCH 32.3 MCHC 34.0 RDW 14.1 Plt Count 295 MPV 7.3 L Absolute Neuts (auto) 7.2 Neutrophils % 66.0 Lymphocytes % 27.8 Monocytes % 4.5 Eosinophils % 1.0 Basophils % 0.7 D Nucleated RBC % 0 Sodium 141 Potassium 4.1 Chloride 107 Carbon Dioxide 27 Anion Gap 7 L BUN 21 H Creatinine 0.7 Creat Clearance w eGFR 83.72 Random Glucose 131 H Calcium 9.2 Total Bilirubin 0.2 AST 15 ALT 27 Alkaline Phosphatase 93 Troponin I < 0.02 Total Protein 7.4 Albumin 3.7 Influenza A (Rapid) Negative Influenza B (Rapid) Negative ap shortness of breath and chest pains atypical symptoms ch pains high lipids Plan she dosnt want to stay in hospital advised her to do at least one more set of troponin she will sigh out AMA after that will do further w/u in office.
[2019-01-06] MEDS ORDERED: PT OWN MED DRAWER 7, Y5N ONE ×2 (09:37→10:58)
[2019-01-06 09:50] VITALS: BP 120/87; PULSE 75; TEMP 98.5; BMI 30.2
[2019-01-06] MEDS ORDERED: HEPARIN NA (PORCINE) 5,000 UNITS/ML 1ML VIAL SQ SCH (10:00)
[2019-01-06] MEDS ORDERED: predniSONE 20 MG TABLET (UD) PO SCH (10:00)
--- NOTE | 2019-01-06 12:06 | PN ---
Progress Note (short form) - Note Progress Note: cardiology consult was placed. pt left ama prior to being seen. outpatient consult can be arranged.
--- NOTE | 2019-01-06 12:57 | EKG ---
Test Reason : Blood Pressure : / mmHG Vent. Rate : 078 BPM Atrial Rate : 078 BPM P-R Int : 158 ms QRS Dur : 092 ms QT Int : 380 ms P-R-T Axes : 052 044 060 degrees QTc Int : 433 ms NORMAL SINUS RHYTHM POSSIBLE LEFT ATRIAL ENLARGEMENT BORDERLINE ECG Confirmed by MD LEANDRA, HEIDI ([id number]) on 01/06/2019 12:56:48 PM Referred By: Confirmed By:HEIDI MOBLEY MD
[2019-01-06] MEDS ORDERED: diazePAM 5 MG TABLET PO SCH (22:00)
[2019-01-06] MEDS ORDERED: ATORVASTATIN CA 10 MG TABLET (FP) PO SCH (22:00)
== END 2019-01-06 12:24 | disposition left against medical advice (07) ==
LOC: JER 02:18 → JERBED 04:26 → J4S 06:55
PROVIDERS: ADMIT Internal Medicine; ATTEND Internal Medicine
PROC: 3E013GC Introduction of Other Therapeutic Substance into Subcutaneous Tissue, Percutaneous Approach (ICD-10-PCS; principal; 2019-01-06)
DX: R07.89 Other chest pain (principal); M54.9 Dorsalgia, unspecified; G89.29 Other chronic pain; E78.5 Hyperlipidemia, unspecified; Z87.442 Personal history of urinary calculi; Z86.73 Personal history of transient ischemic attack (TIA), and cerebral infarction without residual deficits; Z79.82 Long term (current) use of aspirin; Z88.5 Allergy status to narcotic agent; Z88.6 Allergy status to analgesic agent; Z88.8 Allergy status to other drugs, medicaments and biological substances
CPT/HCPCS: 36415; 71045-TC-FY; 80053; 82550; 84484; 85025; 87804; 93005; 93010; 96372; 99284-25; G0378; J1644

== ENCOUNTER 2019-01-30 20:48 | Emergency (ER) | payer OTHER ==
--- NOTE | 2019-01-30 20:53 | PDOC ---
Rapid Medical Evaluation Time Seen by Provider: 01/30/19 20:52 Medical Evaluation: Allergies Allergy/AdvReac Type Severity Reaction Status Date / Time hydromorphone HCl AdvReac Severe Low Blood Verified 01/06/19 02:29 [From Dilaudid] Pressure NSAIDS (Non-Steroidal AdvReac Intermediate Verified 01/06/19 02:29 Anti-Inflamma codeine [Codeine] AdvReac Mild Vomiting Verified 01/06/19 02:29 hydrocodone bitartrate AdvReac Mild Low Blood Verified 01/06/19 02:29 [From Vicodin] Pressure morphine AdvReac Mild Low Blood Verified 01/06/19 02:29 Pressure oxycodone [Oxycodone] AdvReac Mild Vomiting Verified 01/06/19 02:29 oxycodone HCl [From Percocet] AdvReac Mild Vomiting Verified 01/06/19 02:29 01/30/19 20:52 PE: Sore throat x1 day PE OP not clearly visulaized ORDERS: Rapid strep Discharge Disposition - Diagnosis Sore throat - Referrals - Patient Instructions - Post Discharge Activity
[2019-01-30 20:55] VITALS: BP 133/73; PULSE 97; TEMP 97.6; BMI 27.0
--- NOTE | 2019-01-30 21:03 | PDOC ---
History of Present Illness - General Chief Complaint: Sore Throat Stated Complaint: SORE THROAT Time Seen by Provider: 01/30/19 20:52 History Source: Patient Exam Limitations: No Limitations - History of Present Illness Initial Comments: Patient is a 68-year-old female who states that approximate 4 hours prior to arrival she woke up with a sore throat. She denies fever, denies lymphadenopathy, denies inability eat or drink or any airway compromise. She describes the pain as sore and rates it at a 4 out of 10. Patient denies fever. Denies any aggravating or relieving factors. 01/30/19 21:01 Past History - Travel Traveled outside of the country in the last 30 days: No Close contact w/someone who was outside of country & ill: No - Past Medical History Allergies/Adverse Reactions: Allergies Allergy/AdvReac Type Severity Reaction Status Date / Time hydromorphone HCl AdvReac Severe Low Blood Verified 01/30/19 20:59 [From Dilaudid] Pressure NSAIDS (Non-Steroidal AdvReac Intermediate Verified 01/30/19 20:59 Anti-Inflamma codeine [Codeine] AdvReac Mild Vomiting Verified 01/30/19 20:59 hydrocodone bitartrate AdvReac Mild Low Blood Verified 01/30/19 20:59 [From Vicodin] Pressure morphine AdvReac Mild Low Blood Verified 01/30/19 20:59 Pressure oxycodone [Oxycodone] AdvReac Mild Vomiting Verified 01/30/19 20:59 oxycodone HCl [From Percocet] AdvReac Mild Vomiting Verified 01/30/19 20:59 Home Medications: Ambulatory Orders Baclofen 10 mg PO DAILY PRN 08/06/15 Diazepam [Valium -] 10 mg PO HS 08/06/15 Meperidine HCl [Demerol -] 100 mg PO QID 05/22/16 Atorvastatin Ca [Lipitor] 10 mg PO HS 11/18/17 hydrOXYzine PAMOATE [Vistaril -] 50 mg PO TID 11/18/17 Anemia: No Asthma: No Cancer: No Cardiac Disorders: No CVA: Yes (X2 2000) COPD: No CHF: No DVT: No Dementia: No Diabetes: No Dialysis: No GI Disorders: Yes (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) Disorders: No HTN: No Hypercholesterolemia: Yes Kidney Stones: Yes (04/12/16) Liver Disease: No Psychiatric Problems: No Seizures: No - Surgical History Abdominal Surgery: Yes (6 HERNIA REPAIRS/HEMICOLECTOMY) GI Surgery: Yes (reconstruction of colon) Neurologic Surgery: Yes (laminectomy, spinal fusion, RECONSTRUCTION) Orthopedic Surgery: Yes - Immunization History Immunization Up to Date: Yes - Suicide/Smoking/Psychosocial Hx Smoking Status: Yes Smoking History: Never smoked Have you smoked in the past 12 months: No Number of Cigarettes Smoked Daily: 0 If you are a former smoker, when did you quit?: 25 years ago Information on smoking cessation initiated: No Hx Alcohol Use: No Drug/Substance Use Hx: No Substance Use Type: None Hx Substance Use Treatment: No Review of Systems - Review of Systems Able to Perform ROS?: Yes Constitutional: No: Chills, Fever HEENTM: Yes: Throat Pain. No: Throat Swelling, Mouth Pain, Difficulty Swallowing, Mouth Swelling Respiratory: No: Cough Cardiac (ROS): No: Chest Pain *Physical Exam - Vital Signs Last Vital Signs Temp Pulse Resp BP Pulse Ox 97.6 F 97 H 18 133/73 94 L 01/30/19 20:53 01/30/19 20:53 01/30/19 20:53 01/30/19 20:53 01/30/19 20:53 - Physical Exam Comments: Constitutional: VS stated, pt appears in no apparent distress; sitting in chair. Skin: Warm and dry. Intact, no lesions or excoriations. Head: Normocephalic; atraumatic Eyes: conjunctiva pink without injection or discharge. Ears: No tenderness present. Canals without injection or discharge; TM clear, no retractions or bulging. Nose: Patent, mucosa pink. No drainage. Throat: Oropharynx with pink and moist mucosa. Dentition good. No pharyngeal edema; erythema or exudate. Tongue normal, no fasciculations. Airway Patent. Hypoglossal area is soft. Uvula is midline. No trismus. Neck: Supple, non-tender, with full ROM, trachea midline, no anterior/posterior cervical chain lymphadenopathy, Lungs: Bilateral breath sounds clear upon auscultation. No adventitious breath sounds. Heart: Regular rate and rhythm, S1/S2 auscultated. No murmurs, rubs, or gallops. No visible pulsations, heaves, or lifts on precordium. Abdomen: Soft and non-tender. Musculoskeletal: Moves all extremtiies without difficulty. Neurologic: Awake, alert. Conversation fluent 01/30/19 21:01 Medical Decision Making - Medical Decision Making Pts RBS was negative 01/30/19 21:02 *DC/Admit/Observation/Transfer Diagnosis at time of Disposition: Sore throat - Discharge Dispostion Disposition: HOME Condition at time of disposition: Good Decision to Admit order: No - Referrals - Patient Instructions Printed Discharge Instructions: DI for Viral Pharyngitis Additional Instructions: Warm salt water gargles or chloraseptic spray. F/U with your PCP - Post Discharge Activity
== END 2019-01-30 21:30 | disposition home or self-care (01) ==
LOC: JERFT 20:48
DX: J02.9 Acute pharyngitis, unspecified (principal)
CPT/HCPCS: 87070; 87880; 99281-25

== ENCOUNTER 2019-04-06 00:08 | Emergency (ER) | payer OTHER ==
[2019-04-06 01:03] VITALS: BP 149/67; PULSE 91; TEMP 98.4; BMI 26.6
--- NOTE | 2019-04-06 01:24 | PDOC ---
History of Present Illness - General Chief Complaint: Pain Stated Complaint: PAIN/LT SIDE Time Seen by Provider: 04/06/19 01:22 Past History - Past Medical History Allergies/Adverse Reactions: Allergies Allergy/AdvReac Type Severity Reaction Status Date / Time hydromorphone HCl AdvReac Severe Low Blood Verified 04/06/19 01:02 [From Dilaudid] Pressure NSAIDS (Non-Steroidal AdvReac Intermediate Verified 04/06/19 01:02 Anti-Inflamma codeine [Codeine] AdvReac Mild Vomiting Verified 04/06/19 01:02 hydrocodone bitartrate AdvReac Mild Low Blood Verified 04/06/19 01:02 [From Vicodin] Pressure morphine AdvReac Mild Low Blood Verified 04/06/19 01:02 Pressure oxycodone [Oxycodone] AdvReac Mild Vomiting Verified 04/06/19 01:02 oxycodone HCl [From Percocet] AdvReac Mild Vomiting Verified 04/06/19 01:02 Home Medications: Ambulatory Orders Baclofen 10 mg PO DAILY PRN 08/06/15 Diazepam [Valium -] 10 mg PO HS 08/06/15 Meperidine HCl [Demerol -] 100 mg PO QID 05/22/16 Atorvastatin Ca [Lipitor] 10 mg PO HS 11/18/17 hydrOXYzine PAMOATE [Vistaril -] 50 mg PO TID 11/18/17 Anemia: No Asthma: No Cancer: No Cardiac Disorders: No CVA: Yes (X2 1999) COPD: No CHF: No DVT: No Dementia: No Diabetes: No Dialysis: No GI Disorders: Yes (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) Disorders: No HTN: No Hypercholesterolemia: Yes Kidney Stones: Yes (04/12/16) Liver Disease: No Psychiatric Problems: No Seizures: No - Surgical History Abdominal Surgery: Yes (6 HERNIA REPAIRS/HEMICOLECTOMY) GI Surgery: Yes (reconstruction of colon) Neurologic Surgery: Yes (laminectomy, spinal fusion, RECONSTRUCTION) Orthopedic Surgery: Yes - Immunization History Immunization Up to Date: Yes - Suicide/Smoking/Psychosocial Hx Smoking Status: Yes Smoking History: Never smoked Have you smoked in the past 12 months: No Number of Cigarettes Smoked Daily: 0 If you are a former smoker, when did you quit?: 25 years ago Information on smoking cessation initiated: No Hx Alcohol Use: No Drug/Substance Use Hx: No Substance Use Type: None Hx Substance Use Treatment: No *Physical Exam - Vital Signs Last Vital Signs Temp Pulse Resp BP Pulse Ox 98.4 F 91 H 18 149/67 97 04/06/19 00:16 04/06/19 00:16 04/06/19 00:16 04/06/19 00:16 04/06/19 00:16 ED Treatment Course - LABORATORY CBC & Chemistry Diagram: 04/06/19 02:10 04/06/19 03:32 Medical Decision Making - Medical Decision Making HPI: 69yo F with PMH of neck pain, CVA, HLD, umbilical hernia, back pain on chronic pain management, left sided nephrolithiasis s/p lithotripsy four years ago presenting with Left flank pain. Patient states this feels exactly like the pain she had when she had a kidney stone four years ago. She rates it 10/10 with worsening upon movement. Has not taken anything at home for her left flank pain, though she is on demerol and viseril for her back pain. Denies urinary symptoms: no dysuria, hematuria, or frequency. Endorses chills, but no fevers, chest pain, or shortness of breath. PCP: Tucker Garcia Urologist: Rafael ROS: Constitutional: no fever, +chills HEENT: no throat pain, no dysphagia Cardiovascular: no chest pain, no palpitations Respiratory: no cough, no shortness of breath Gastrointestinal: no abdominal pain, no nausea Genitourinary: no dysuria, +L. flank pain Musculoskeletal: no myalgia, no arthralgia Skin: no rash, no itching Neurologic: no headache, no weakness PE General: Awake, alert, and fully oriented, in no acute distress Head: No signs of trauma Eyes: EOMI, sclera anicteric ENT: Moist mucus membranes Neck: Normal ROM, supple Lungs: Lungs clear, Normal breath sounds Cardio: Regular rhythm, S1 and S2 present Abdomen: Soft, nontender, nondistended. No guarding, no rebound, no masses. +L. CVA tenderness, no R. CVA tenderness Extremities: Normal range of motion, Distal pulses present SKIN: Warm, Dry, normal turgor Neurologic: Cranial nerves II through XII grossly intact. Normal speech. Ambulating with antalgic gait. ED Course/ MDM: DDX including but not limited to nephrolithiasis, pyelonephritis, UTI, back pain , MSK, malingering Labs CTAP without IV contrast Fluids, Ofirmev Patient refused Ofirmev stating "I don't want to take anything I am unfamiliar with." I explained that Ofirmev is an anti-inflammatory medicine. Patient saying she is unable to lay for CT scan without pain medicine, but is still refusing Ofirmev 04/06/19 02:37 CBC WBC 12.2 K/mm3 (4.0-10.0) H 04/06/19 02:10 RBC 4.15 M/mm3 (3.60-5.2) 04/06/19 02:10 Hgb 12.9 GM/dL (10.7-15.3) 04/06/19 02:10 Hct 38.8 % (32.4-45.2) 04/06/19 02:10 MCV 93.5 fl (80-96) 04/06/19 02:10 MCH 31.2 pg (25.7-33.7) 04/06/19 02:10 MCHC 33.3 g/dl (32.0-36.0) 04/06/19 02:10 RDW 13.0 % (11.6-15.6) 04/06/19 02:10 Plt Count 311 K/MM3 (134-434) 04/06/19 02:10 MPV 7.7 fl (7.5-11.1) 04/06/19 02:10 Absolute Neuts (auto) 7.8 K/mm3 (1.5-8.0) 04/06/19 02:10 Neutrophils % 64.5 % (42.8-82.8) 04/06/19 02:10 Lymphocytes % 27.7 % (8-40) 04/06/19 02:10 Monocytes % 5.2 % (3.8-10.2) 04/06/19 02:10 Eosinophils % 1.7 % (0-4.5) 04/06/19 02:10 Basophils % 0.9 % (0-2.0) 04/06/19 02:10 Nucleated RBC % 0 % (0-0) 04/06/19 02:10 Mild leukocytosis No anemia CMP hemolyzed. Re-ordered. 04/06/19 03:08 CMP Sodium 141 mmol/L (136-145) 04/06/19 03:32 Potassium 4.0 mmol/L (3.5-5.1) 04/06/19 03:32 Chloride 108 mmol/L (98-107) H 04/06/19 03:32 Carbon Dioxide 25 mmol/L (21-32) 04/06/19 03:32 Anion Gap 8 MMOL/L (8-16) 04/06/19 03:32 BUN 16.1 mg/dL (7-18) 04/06/19 03:32 Creatinine 0.6 mg/dL (0.55-1.3) 04/06/19 03:32 Est GFR (CKD-EPI)AfAm 109.31 04/06/19 03:32 Est GFR (CKD-EPI)NonAf 94.32 04/06/19 03:32 Random Glucose 117 mg/dL (74-106) H 04/06/19 03:32 Calcium 8.3 mg/dL (8.5-10.1) L 04/06/19 03:32 Total Bilirubin 0.2 mg/dL (0.2-1) 04/06/19 03:32 AST 12 U/L (15-37) L 04/06/19 03:32 ALT 21 U/L (13-61) 04/06/19 03:32 Alkaline Phosphatase 97 U/L (45-117) 04/06/19 03:32 Total Protein 6.3 g/dl (6.4-8.2) L 04/06/19 03:32 Albumin 3.2 g/dl (3.4-5.0) L 04/06/19 03:32 Electrolytes unremarkable Cr normal No transaminitis Pending UA Patient went to CT scan. Pending report. 04/06/19 04:15 CT without L. sided nephrolithiasis: "FINDINGS: Abdomen Liver: Normal Spleen: Normal Pancreas: Normal Gallbladder: Surgically absent Stomach: Normal Small bowel: Normal Large bowel: There are surgical changes of partial colonic resection Appendix: Normal Adrenals:Normal Kidneys: There is a 3 mm nonobstructing right calyceal renal stone Vascular: Normal Lymphatic: Normal Peritoneal: No free peritoneal air or fluid Pelvis: Uterus: normal Rectum: Normal Bladder: Normal The inferior thorax: Normal General: Skeletal: There are surgical changes of lumbar laminectomy Abdominal wall: Normal IMPRESSION: Nephrolithiasis" Patient amenable to ofirmev. Plan for discharge after medication administration. 04/06/19 05:05 Ofirmev given Patient discharged 04/06/19 05:45 *DC/Admit/Observation/Transfer Diagnosis at time of Disposition: Left flank pain - Discharge Dispostion Disposition: HOME Condition at time of disposition: Stable - Referrals Referrals: Tucker Garcia MD [Primary Care Provider] - - Patient Instructions Printed Discharge Instructions: DI for Low Back Pain Additional Instructions: You came to the ED for left flank pain. CT Imaging did not show a left-sided kidney stone. Your left flank pain is likely a consequence of your back pain and should be managed by your pain coordinator. Your lab work was within normal limits showing you have normal kidney function and no urinary tract infection. It is important to follow up with your primary care doctor this week to discuss this visit and further assess your symptoms. Your care is not complete until you do so. Call and make an appointment. Immediate medical attention is required if you have back pain and : numbness in the genital or rectal area, loss of bowel or bladder control, difficulty with urination; fever, unexplained weight loss, or other signs of illness or infection. If you think you are having an emergency, call for emergency medical services or present to the emergency department right away. - Post Discharge Activity
--- NOTE | 2019-04-06 01:36 | PDOC ---
Attending Attestation - Resident Resident Name: KelseyMaribel - ED Attending Attestation I have performed the following: I have examined & evaluated the patient, The case was reviewed & discussed with the resident, I agree w/resident's findings & plan - HPI HPI: 04/06/19 04:35 Pt comes with her kidney stone pain. - Physicial Exam PE: 04/06/19 04:35 Pt comes with left flank pain. She wants demerol for the pain. 04/06/19 04:35 Agree with resident exam - Medical Decision Making 04/06/19 04:36 Home with tylenol and OTC meds. Pt has no pathology in the left flank. Stable for d/c home. 04/06/19 05:03 Patient Name: PRATIBHA AGARWAL THIS IS A PRELIMINARY REPORT FROM [facility] DATE OF SERVICE: 2019-04-06 03:52:47 IMAGES: [id number] EXAM: CT abdomen and pelvis without contrast HISTORY: Left sided flank pain COMPARISON: None. FINDINGS: Abdomen Liver: Normal Spleen: Normal Pancreas: Normal Gallbladder: Surgically absent Stomach: Normal Small bowel: Normal Large bowel: There are surgical changes of partial colonic resection Appendix: Normal Adrenals:Normal Kidneys: There is a 3 mm nonobstructing right calyceal renal stone Vascular: Normal Lymphatic: Normal Peritoneal: No free peritoneal air or fluid Pelvis: Uterus: normal Rectum: Normal Bladder: Normal The inferior thorax: Normal General: Skeletal: There are surgical changes of lumbar laminectomy Abdominal wall: Normal IMPRESSION: Nephrolithiasis 04/06/19 05:04 Home with PMD follow up.
[2019-04-06] MEDS ORDERED: SODIUM CHLORIDE 1,000 ML IV STA (01:47)
[2019-04-06] MEDS ORDERED: ACETAMINOPHEN 1000 MG/100 ML VIAL (NON FORMULARY) IVPB ONE ×2 (01:48→05:19)
[2019-04-06 02:19] LABS: BASO % 0.9 % (0-2.0); EOS % 1.7 % (0-4.5); HEMATOCRIT 38.8 % (32.4-45.2); HEMOGLOBIN 12.9 GM/dL (10.7-15.3); LYMPH % 27.7 % (8-40); MCH 31.2 pg (25.7-33.7); MCHC 33.3 g/dl (32.0-36.0); MEAN CELL VOLUME 93.5 fl (80-96); MEAN PLT VOLUME 7.7 fl (7.5-11.1); MONO % 5.2 % (3.8-10.2); NEUT % 64.5 % (42.8-82.8); PLATELET COUNT 311 K/MM3 (134-434); RBC 4.15 M/mm3 (3.60-5.2); WHITE BLOOD COUNT 12.2 K/mm3 (4.0-10.0)
[2019-04-06] MEDS ORDERED: ACETAMINOPHEN INJECTION 100 ML IVPB ONE (02:23)
[2019-04-06 04:12] LABS: ALBUMIN 3.2 g/dl (3.4-5.0); BILIRUBIN,TOTAL 0.2 mg/dL (0.2-1); BLOOD UREA NITROGEN 16.1 mg/dL (7-18); CALCIUM 8.3 mg/dL (8.5-10.1); CREATININE 0.6 mg/dL (0.55-1.3); TOT PROT 6.3 g/dl (6.4-8.2)
[2019-04-06 04:28] LABS: URINE APPEARANCE CLEAR; URINE BILIRUBIN NEGATIVE (NEGATIVE); URINE COLOR YELLOW; URINE GLUCOSE (UA) NEGATIVE (NEGATIVE); URINE KETONE NEGATIVE (NEGATIVE); URINE LEUK ESTERASE NEGATIVE (NEGATIVE); URINE NITRITE NEGATIVE (NEGATIVE); URINE PROTEIN NEGATIVE (NEGATIVE); URINE UROBILINOGEN 0.2 mg/dL (0.2-1.0)
== END 2019-04-06 05:34 | disposition home or self-care (01) ==
LOC: JER 00:08
PROC: 3E0337Z Introduction of Electrolytic and Water Balance Substance into Peripheral Vein, Percutaneous Approach (ICD-10-PCS; principal; 2019-04-06)
DX: R10.32 Left lower quadrant pain (principal); Z86.73 Personal history of transient ischemic attack (TIA), and cerebral infarction without residual deficits; E78.00 Pure hypercholesterolemia, unspecified; Z87.891 Personal history of nicotine dependence
CPT/HCPCS: 36415; 74176-TC; 80053; 81003; 85025; 87086; 96360; 99282-25; J7030

== ENCOUNTER 2019-06-04 23:23 | Emergency (ER) | payer OTHER ==
[2019-06-04 23:54] VITALS: BMI 31.7
--- NOTE | 2019-06-05 02:01 | PDOC ---
Attending Attestation - Resident Resident Name: Stephanie Garner - ED Attending Attestation I have performed the following: I have examined & evaluated the patient, The case was reviewed & discussed with the resident, I agree w/resident's findings & plan - HPI HPI: 06/05/19 05:47 see resident - Physicial Exam PE: 06/05/19 05:47 agree with resident exam - Medical Decision Making 06/05/19 05:48 69 yo with chest pain cxr shows no acute infiltrate pt advised to stay for obs due to age, risk factors and persistent pain 06/05/19 05:53
[2019-06-05] MEDS ORDERED: FAMOTIDINE 20 MG/50 ML IVPB 20 MG/50 ML MG IVPB ONE ×2 (02:02→02:25)
[2019-06-05] MEDS ORDERED: MAG HYDROX/AL HYDROX/SIMETH 30 ML UNIT-DOSE CUP PO ONE (02:02)
--- NOTE | 2019-06-05 02:02 | PDOC ---
History of Present Illness - General Chief Complaint: Sore Throat Stated Complaint: Sore Throat/PAIN ALL OVER THE BODY Time Seen by Provider: 06/05/19 01:44 - History of Present Illness Initial Comments: Analisa Garza is a 69yo woman with a PMH of chronic neck pain, CVA, HLD, umbilical hernia, back pain on chronic pain management who presents reporting epigastric and midsternal chest discomfort. She states that she has had chronic problems with "choking' since being intubated many years ago, and she often has discomfort, but this is much worse than normal. She reports that she had been feeling well when she went to bed but woke up overnight with severe 10/10 pain in her mid chest. She denies any associated nausea, vomiting, sweating, lightheadedness, or shortness of breath. She denies any history of acid reflux or GERD but does state that she has chronic pain in her throat along with the choking. Past History - Past Medical History Allergies/Adverse Reactions: Allergies Allergy/AdvReac Type Severity Reaction Status Date / Time hydromorphone HCl AdvReac Severe Low Blood Verified 06/05/19 04:42 [From Dilaudid] Pressure NSAIDS (Non-Steroidal AdvReac Intermediate Verified 06/05/19 04:42 Anti-Inflamma codeine [Codeine] AdvReac Mild Vomiting Verified 06/05/19 04:42 hydrocodone bitartrate AdvReac Mild Low Blood Verified 06/05/19 04:42 [From Vicodin] Pressure morphine AdvReac Mild Low Blood Verified 06/05/19 04:42 Pressure oxycodone [Oxycodone] AdvReac Mild Vomiting Verified 06/05/19 04:42 oxycodone HCl [From Percocet] AdvReac Mild Vomiting Verified 06/05/19 04:42 Home Medications: Ambulatory Orders Baclofen 10 mg PO DAILY PRN 08/06/15 Diazepam [Valium -] 10 mg PO HS 08/06/15 Meperidine HCl [Demerol -] 100 mg PO QID 05/22/16 Atorvastatin Ca [Lipitor] 10 mg PO HS 11/18/17 hydrOXYzine PAMOATE [Vistaril -] 50 mg PO TID 11/18/17 Anemia: No Asthma: No Cancer: No Cardiac Disorders: No CVA: Yes (X2 2000) COPD: No CHF: No DVT: No Dementia: No Diabetes: No Dialysis: No GI Disorders: Yes (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) Disorders: No HTN: No Hypercholesterolemia: Yes Kidney Stones: Yes (04/12/16) Liver Disease: No Psychiatric Problems: No Seizures: No - Surgical History Abdominal Surgery: Yes (6 HERNIA REPAIRS/HEMICOLECTOMY) GI Surgery: Yes (reconstruction of colon) Neurologic Surgery: Yes (laminectomy, spinal fusion, RECONSTRUCTION) Orthopedic Surgery: Yes - Immunization History Immunization Up to Date: Yes - Suicide/Smoking/Psychosocial Hx Smoking Status: Yes Smoking History: Unknown if ever smoked Have you smoked in the past 12 months: No Number of Cigarettes Smoked Daily: 0 If you are a former smoker, when did you quit?: 25 years ago Information on smoking cessation initiated: No Hx Alcohol Use: No Drug/Substance Use Hx: No Substance Use Type: None Hx Substance Use Treatment: No Review of Systems - Review of Systems Comments:: General: No fevers, no chills, no weight or appetite change, no malaise HEENT: No changes in vision, no changes in hearing, no congestion, +Sore throat , see HPI CV: +sternal pain, no palpitations, no LE edema Pulm: No SOB, no cough, no wheezing GI: No nausea or vomiting, no change in bowel habits, no melena : No frequency, no urgency, no dysuria Musc: No back pain, no joint swelling, no recent injury Skin: No rash, no lesions, no erythema Endo: No excessive thirst, no heat/cold intolerance Heme: No unusual bruising or bleeding, no swollen glands Neuro: No syncope, no numbness/tingling, no focal weakness Vasc: No claudication Psych: No recent change in mood, no SI or HI *Physical Exam - Vital Signs Last Vital Signs Temp Pulse Resp BP Pulse Ox 98.1 F 93 H 20 146/76 97 06/04/19 23:49 06/04/19 23:49 06/04/19 23:49 06/04/19 23:49 06/04/19 23:49 - Physical Exam Comments: General: Comfortable, no acute distress HEENT: Atraumatic, PERRL, EOMI, MMM, hoarse voice. No pharyngeal erythema or edema, no exudates. Cards: RRR, no murmur appreciated. TTP over sternum. Pulm: Comfortable on room air, clear to auscultation bilaterally Abd: Soft, nondistended. Significant TTP over epigastrium. Ext: Atraumatic. No LE edema. ROM intact. WWP Skin: Normal color, no rashes or lesions Neuro: A&Ox3, CN grossly intact, normal speech, motor/sensory grossly intact and symmetric Psych: Mood appropriate to situation ED Treatment Course - LABORATORY CBC & Chemistry Diagram: 06/05/19 02:50 06/05/19 02:50 Medical Decision Making - Medical Decision Making 06/05/19 Analisa Garza is a 69yo woman with a PMH of chronic neck pain, CVA, HLD, umbilical hernia, back pain on chronic pain management who presents reporting 10 /10 epigastric and midsternal chest pain. - Most likely reflux or esophagitis but cannot exclude ACS - CBC, CMP, EKG, trop, CXR - Pepcid, maalox for symptoms 06/05/19 03:55 - Labs reviewed, unremarkable - Still reporting 10/10 mid-sternal pain - EKG w/ NSR, HR 80, normal axis, normal intervals, no ST changes - Given persistent pain, plan to admit to the ED for cardiac workup and pain control 06/05/19 05:15 - Pt requests toradol. NSAIDs are listed as an allergy. Pt previously reported vomiting - Explained to pt that she stated this medication is an allergy. She requests it anyway - Offered IV acetaminophen for continued pain. Pt states that she does not know what this medication is and will not put it in her body. Explained that acetaminophen is the same medication as Tylenol. 06/05/19 06:12 - Ms Garza continues to decline IV acetaminophen. States that she always takes toradol. Explained again that she has NSAIDs listed as an allergy, reportedly causing stomach irritation. As reflux may be contributing to her symptoms, not a good idea to take medications that will irritate her stomach. - Pt states that she wishes to leave the hospital at this time. - Discussed reasons for advising admission, risks of leaving the hospital. Pt continues to wish to leave. - Will leave AMA. 06/05/19 06:46 - AMA paperwork signed. Pt advised regarding risks of leaving hospital including undiagnosed IN or . Discussed with Dr Campuzano. Stephanie Garner PGY2 *DC/Admit/Observation/Transfer Diagnosis at time of Disposition: Mid sternal chest pain - Discharge Dispostion Disposition: AGAINST MEDICAL ADVICE Condition at time of disposition: Stable Decision to Admit order: No - Referrals Referrals: Tucker Garcia MD [Primary Care Provider] - - Patient Instructions Printed Discharge Instructions: DI for Chest Pain Additional Instructions: Discharge Instructions: You were seen in the emergency department for chest pain. You had blood tests, an EKG, and a chest xray that did not show any concerning changes. You declined hospital admission for additional workup. Continue to take all your regular home medications as prescribed. See your regular doctor within the next 1-2 days for follow up. Seek immediate care for any worsening symptoms, difficulty breathing, chest pain with sweating or that occurs with exercise, or any other medical emergency. - Post Discharge Activity
[2019-06-05 02:22] VITALS: BP 126/76; PULSE 81; TEMP 97.3
[2019-06-05] MEDS ORDERED: MAG HYDROX/AL HYDROX/SIMETH 30 ML UNIT-DOSE CUP ONE (02:25)
[2019-06-05 03:08] LABS: BASO % 0.9 % (0-2.0); EOS % 2.3 % (0-4.5); HEMATOCRIT 39.2 % (32.4-45.2); HEMOGLOBIN 13.5 GM/dL (10.7-15.3); LYMPH % 25.4 % (8-40); MCHC 34.4 g/dl (32.0-36.0); MONO % 4.3 % (3.8-10.2); NEUT % 67.1 % (42.8-82.8); PLATELET COUNT 274 K/MM3 (134-434); RBC 4.22 M/mm3 (3.60-5.2); RDW 14.2 % (11.6-15.6); WHITE BLOOD COUNT 10.3 K/mm3 (4.0-10.0)
[2019-06-05 03:29] LABS: ALBUMIN 3.8 g/dl (3.4-5.0); BILIRUBIN,TOTAL 0.3 mg/dL (0.2-1); BLOOD UREA NITROGEN 13.9 mg/dL (7-18); CALCIUM 8.9 mg/dL (8.5-10.1); CREATININE 0.7 mg/dL (0.55-1.3); POTASSIUM 4.4 mmol/L (3.5-5.1); TOT PROT 7.4 g/dl (6.4-8.2)
[2019-06-05] MEDS ORDERED: KETOROLAC TROMETHAMINE 15 MG/ML VIAL IVPUSH ONE (04:37)
[2019-06-05] MEDS ORDERED: ACETAMINOPHEN 1000 MG/100 ML VIAL (NON FORMULARY) IVPB ONE (04:46)
[2019-06-05] MEDS ORDERED: ACETAMINOPHEN INJECTION 100 ML IVPB ONE (04:55)
--- NOTE | 2019-06-05 11:29 | EKG ---
Test Reason : Blood Pressure : / mmHG Vent. Rate : 080 BPM Atrial Rate : 080 BPM P-R Int : 158 ms QRS Dur : 088 ms QT Int : 384 ms P-R-T Axes : 047 028 044 degrees QTc Int : 442 ms NORMAL SINUS RHYTHM POSSIBLE LEFT ATRIAL ENLARGEMENT BORDERLINE ECG WHEN COMPARED WITH ECG OF 06-JAN-2019 02:40, NO SIGNIFICANT CHANGE WAS FOUND Confirmed by JOSEFINA MONTEMAYOR, DHARA ([id number]) on 06/05/2019 11:28:42 AM Referred By: Confirmed By:DHARA ROCHA MD
== END 2019-06-05 06:40 | disposition left against medical advice (07) ==
LOC: JER 23:23
PROC: 3E033GC Introduction of Other Therapeutic Substance into Peripheral Vein, Percutaneous Approach (ICD-10-PCS; principal; 2019-06-04)
DX: J02.9 Acute pharyngitis, unspecified (principal)
CPT/HCPCS: 36415; 71046-TC-FY; 80053; 82550; 84484; 85025; 93005; 93010; 96365; 99282-25